=== PATIENT | female | born 1960 | race Asian ===

== ENCOUNTER 2023-11-19 07:33 | Inpatient (IN) | payer MEDICAID, OTHER ==
[~2023-11-19] VITALS: Ht 160 cm; Wt 63.2 kg
[2023-11-19] MEDS ORDERED: DEXTROSE (50%) 50ML SYRG IV PRN (07:45)
[2023-11-19 08:04] VITALS: PULSE 114; RESP 22; O2SAT 98
[2023-11-19 08:15] LABS: Anion Gap 25.00001 (5-15); Chloride 100 mmol/L (98-107); Sodium 135 mmol/L (136-145)
[2023-11-19 08:16] LABS: Calcium 9.6 mg/dL (8.7-10.4)
[2023-11-19 08:21] LABS: BUN/Creatinine Ratio 12.8 (10.0-20.0); Blood Urea Nitrogen 21 mg/dL (9-23); Magnesium 2.8 mg/dL (1.6-2.6)
[2023-11-19] MEDS: SODIUM CHLORIDE 0.9% 1,000 ML IV ONE ×2 (08:21→12:27)
[2023-11-19 08:23] LABS: Base Excess -34.2 mmol/L (-2.0-2.0); Phosphorus 6.7 mg/dL (2.4-5.1)
[2023-11-19 08:31] LABS: Carbon Dioxide < 10 mmol/L (20-30)
[2023-11-19 08:32] LABS: Glucose 646 mg/dL (74-106)
[2023-11-19 08:36] LABS: Basophils # (auto) 0.1 10 ^3/uL (0-0.2); Basophils % (auto) 0.3 % (0.0-2.0); Eosinophils # (auto) 0 10 ^3/uL (0-0.8); Eosinophils % (auto) 0.1 % (0.0-7.0); Hematocrit 49.1 % (36.0-46.0); Hemoglobin 15.3 g/dL (12.2-16.2); Lymphocytes # (auto) 3.6 10 ^3/uL (0.4-5.4); Lymphocytes % (auto) 18.6 % (10.0-50.0); Mean Corpuscular Hemoglobin 30.4 pg (28.0-32.0); Mean Corpuscular Hgb Conc. 31.1 g/dL (32.0-36.0); Mean Corpuscular Volume 97.8 fL (80.0-100.0); Monocytes # (auto) 2.4 10 ^3/uL (0-1.3); Monocytes % (auto) 12.4 % (0.0-12.0); Neutrophils # (auto) 13.3 10 ^3/uL (1.6-8.6); Neutrophils % (auto) 68.6 % (37.0-80.0); Nucleated Red Blood Cells % 0.1 %; Platelet Count (auto) 263 10^3/uL (140-450); Red Blood Cells 5.03 10^6/uL (4.0-5.20); Red Cell Distribution Width 15.3 % (11.8-14.3); White Blood Cell 19.3 10^3/uL (4.4-10.8)
[2023-11-19] MEDS: INSULIN LANTUS (GLARGINE) 1 /0.01ml (100units/ml) SC ONE (08:39)
[2023-11-19] MEDS: SODIUM BICARB 8.4% 50Meq/50ml SYR Vial IV ONE ×2 (08:39→18:37)
[2023-11-19] MEDS: INSULIN DRIP 100 UNIT/100ML 100 ML IV SCH ×2 (08:40→18:15)
[2023-11-19] MEDS: ACCU-CHEK COMFORT CURVE STRIP VI SCH (09:01)
[2023-11-19 09:53] LABS: Urine Bacteria None Seen /hpf (None Seen)
[2023-11-19 10:26] LABS: Urine Blood 1+ /uL (Negative); Urine Budding Yeast OCCASIONAL /hpf (None Seen); Urine Clarity Clear (Clear); Urine Color Light-Yellow (Yellow); Urine Protein, UAD 1+ (Negative); Urine Specific Gravity 1.025 (1.001-1.035); Urine Urobilinogen Normal (Negative); Urine WBC 1 /hpf (0 - 5); Urine pH 5.5 (5.0-9.0)
[2023-11-19] MEDS: SODIUM CHLORIDE 0.9% 1,000 ML IV SCH ×3 (10:43→13:45)
[2023-11-19 11:49] LABS: Triglycerides 362 mg/dL (< 150)
[2023-11-19 11:50] LABS: LDL Cholesterol 264 mg/dL (< 100)
[2023-11-19 11:51] LABS: Cholesterol 373 mg/dL (< 200); HDL Cholesterol 51 mg/dL (40-59)
[2023-11-19 11:57] LABS: Amphetamine Screen, Urine Neg (NEGATIVE); Barbiturate Scree,Urine Neg (NEGATIVE); Benzodiazephine Screen, Urine Neg (NEGATIVE); Cocaine Screen, Urine Neg (NEGATIVE); Opiate Scree,Urine Neg (NEGATIVE); Phencyclidine Screen, Urine Neg (NEGATIVE)
[2023-11-19 11:58] LABS: Cannabinoid Screen, Urine Neg (NEGATIVE)
[2023-11-19] MEDS: cefTRIAXone 1GM/50ML D5W 50 ML IV ONE (12:01)
[2023-11-19] MEDS: SODIUM BICARB 50mEq/50ml Vial 150 ML in D5W 5% 1,000 ML IV ONE ×2 (12:45→18:43)
[2023-11-19 14:43] LABS: Potassium 2.8 mmol/L (3.5-5.1); Sodium 143 mmol/L (136-145)
[2023-11-19 14:44] LABS: Anion Gap 21.00001 (5-15); Calcium 8.3 mg/dL (8.7-10.4)
[2023-11-19 14:49] LABS: BUN/Creatinine Ratio 13.8 (10.0-20.0); Blood Urea Nitrogen 18 mg/dL (9-23)
[2023-11-19 14:54] LABS: Chloride 112 mmol/L (98-107)
[2023-11-19 14:55] LABS: Carbon Dioxide < 10 mmol/L (20-30); Glucose 484 mg/dL (74-106)
[2023-11-19 18:25] LABS: Base Excess -19.9 mmol/L (-2.0-2.0)
[2023-11-19 19:45] LABS: Chloride 112 mmol/L (98-107); Potassium 2.8 mmol/L (3.5-5.1); Sodium 147 mmol/L (136-145)
[2023-11-19 19:46] LABS: Anion Gap 23 (5-15); Carbon Dioxide 12 mmol/L (20-30)
[2023-11-19 19:51] LABS: BUN/Creatinine Ratio 16.8 (10.0-20.0); Blood Urea Nitrogen 21 mg/dL (9-23); Glucose 381 mg/dL (74-106)
[2023-11-20] VITALS (10 sets, daily range): BP systolic 83–99; BP diastolic 52–60; PULSE 67–95; RESP 16–20; TEMP 97.6–98.6; O2SAT 96–100
[2023-11-20 00:09] LABS: Base Excess -3.9 mmol/L (-2.0-2.0)
[2023-11-20] MEDS: POTASSIUM CHL 20MEQ/100ML 100 ML IV SCH ×2 (00:42→10:06)
[2023-11-20 00:48] LABS: Chloride 115 mmol/L (98-107); Sodium 148 mmol/L (136-145)
[2023-11-20 00:49] LABS: Anion Gap 14 (5-15); Calcium 7.7 mg/dL (8.7-10.4); Carbon Dioxide 19 mmol/L (20-30)
[2023-11-20 00:54] LABS: Glucose 205 mg/dL (74-106)
[2023-11-20 01:05] LABS: Potassium 2.2 mmol/L (3.5-5.1)
[2023-11-20 01:29] LABS: BUN/Creatinine Ratio 19.6 (10.0-20.0); Blood Urea Nitrogen 27 mg/dL (9-23)
[2023-11-20] MEDS ORDERED: DEXTROSE (50%) 50ML SYRG IV PRN ×2 (03:30→11:30)
[2023-11-20] MEDS: POTASSIUM CHL 20 Meq TABLET PO ONE (04:05)
[2023-11-20] MEDS: ACCU-CHEK COMFORT CURVE STRIP VI SCH ×2 (04:09→11:30)
[2023-11-20] MEDS: InsuLIN REG 1unit/0.01ml Soln (100units/ml) SC SCH ×3 (04:11→21:34)
[2023-11-20] MEDS ORDERED: METF-370 PO (05:57)
[2023-11-20 07:53] LABS: Basophils # (auto) 0 10 ^3/uL (0-0.2); Basophils % (auto) 0.2 % (0.0-2.0); Eosinophils # (auto) 0 10 ^3/uL (0-0.8); Eosinophils % (auto) 0.1 % (0.0-7.0); Hemoglobin 11.8 g/dL (12.2-16.2); Lymphocytes # (auto) 0.6 10 ^3/uL (0.4-5.4); Lymphocytes % (auto) 7.1 % (10.0-50.0); Mean Corpuscular Hemoglobin 30.8 pg (28.0-32.0); Mean Corpuscular Hgb Conc. 34.9 g/dL (32.0-36.0); Mean Corpuscular Volume 88.2 fL (80.0-100.0); Monocytes % (auto) 11.1 % (0.0-12.0); Neutrophils # (auto) 7.1 10 ^3/uL (1.6-8.6); Neutrophils % (auto) 81.5 % (37.0-80.0); Nucleated Red Blood Cells % 0.3 %; Platelet Count (auto) 152 10^3/uL (140-450); Red Blood Cells 3.85 10^6/uL (4.0-5.20); Red Cell Distribution Width 13.9 % (11.8-14.3); White Blood Cell 8.8 10^3/uL (4.4-10.8)
[2023-11-20 07:57] LABS: Alanine Aminotransferase 15 U/L (7-40); Alkaline Phosphatase 54 U/L (46-116); Anion Gap 12 (5-15); Aspartate Aminotransferase 38 U/L (13-40); BUN/Creatinine Ratio 14.9 (10.0-20.0); Bilirubin, Total 0.6 mg/dL (0.2-1.0); Blood Urea Nitrogen 26 mg/dL (9-23); Calcium 8.2 mg/dL (8.7-10.4); Carbon Dioxide 22 mmol/L (20-30); Chloride 114 mmol/L (98-107); Glucose 183 mg/dL (74-106); Sodium 148 mmol/L (136-145); Total Protein 4.8 g/dL (5.7-8.2)
[2023-11-20] MEDS: cefTRIAXone 1GM/50ML D5W 50 ML IV SCH (08:00)
[2023-11-20 08:05] LABS: Potassium 2.5 mmol/L (3.5-5.1)
[2023-11-20] MEDS: INSULIN LANTUS (GLARGINE) 1 /0.01ml (100units/ml) SC SCH (09:55)
[2023-11-20] MEDS: SOD CHL 0.9%/ KCL 40MEQ 1,000 ML IV SCH ×2 (10:06→13:14)
[2023-11-20] MEDS: ENOXAPARIN SOD 30 MG/0.3 ML SYRINGE SC SCH (10:17)
[2023-11-20 12:32] LABS: Anion Gap 10 (5-15); Carbon Dioxide 24 mmol/L (20-30); Chloride 115 mmol/L (98-107); Potassium 2.9 mmol/L (3.5-5.1); Sodium 149 mmol/L (136-145)
[2023-11-20 12:33] LABS: Calcium 8.4 mg/dL (8.7-10.4)
[2023-11-20 12:38] LABS: BUN/Creatinine Ratio 17.2 (10.0-20.0); Blood Urea Nitrogen 34 mg/dL (9-23); Glucose 175 mg/dL (74-106)
[2023-11-20] MEDS: SODIUM CHLORIDE 0.9% 500 ML IV ONE (17:25)
[2023-11-20 18:51] LABS: Chloride 116 mmol/L (98-107); Potassium 3.3 mmol/L (3.5-5.1); Sodium 147 mmol/L (136-145)
[2023-11-20 18:52] LABS: Anion Gap 8 (5-15); Carbon Dioxide 23 mmol/L (20-30)
[2023-11-20 18:53] LABS: Calcium 7.9 mg/dL (8.7-10.4)
[2023-11-20 18:57] LABS: BUN/Creatinine Ratio 13.6 (10.0-20.0); Blood Urea Nitrogen 30 mg/dL (9-23); Glucose 169 mg/dL (74-106)
[2023-11-21] VITALS (8 sets, daily range): BP systolic 101–117; BP diastolic 66–85; PULSE 77–89; RESP 16–20; TEMP 97.5–98.5; O2SAT 98–100
[2023-11-21] MEDS ORDERED: ACETAMINOPHEN 325 MG TAB PO PRN (07:00)
[2023-11-21 07:05] LABS: Basophils # (auto) 0 10 ^3/uL (0-0.2); Basophils % (auto) 0.2 % (0.0-2.0); Eosinophils # (auto) 0 10 ^3/uL (0-0.8); Hematocrit 34.5 % (36.0-46.0); Hemoglobin 12.2 g/dL (12.2-16.2); Lymphocytes # (auto) 1.3 10 ^3/uL (0.4-5.4); Mean Corpuscular Hemoglobin 30.9 pg (28.0-32.0); Mean Corpuscular Hgb Conc. 35.4 g/dL (32.0-36.0); Mean Corpuscular Volume 87.2 fL (80.0-100.0); Monocytes # (auto) 0.7 10 ^3/uL (0-1.3); Monocytes % (auto) 7.9 % (0.0-12.0); Neutrophils # (auto) 6.7 10 ^3/uL (1.6-8.6); Neutrophils % (auto) 76.9 % (37.0-80.0); Nucleated Red Blood Cells % 0.1 %; Platelet Count (auto) 126 10^3/uL (140-450); Red Blood Cells 3.96 10^6/uL (4.0-5.20); Red Cell Distribution Width 14.6 % (11.8-14.3); White Blood Cell 8.7 10^3/uL (4.4-10.8)
[2023-11-21 07:19] LABS: Chloride 119 mmol/L (98-107); Potassium 4.3 mmol/L (3.5-5.1); Sodium 149 mmol/L (136-145)
[2023-11-21 07:20] LABS: Anion Gap 10 (5-15); Carbon Dioxide 20 mmol/L (20-30)
[2023-11-21 07:21] LABS: Calcium 8.1 mg/dL (8.7-10.4)
[2023-11-21 07:25] LABS: BUN/Creatinine Ratio 12.2 (10.0-20.0); Blood Urea Nitrogen 31 mg/dL (9-23); Glucose 128 mg/dL (74-106)
[2023-11-21] MEDS: SODIUM CHLORIDE 0.9% 1,000 ML IV SCH (10:34)
[2023-11-21] MEDS: ONDANSETRON HCL 4 MG/2 ML VIAL IV PRN (10:37)
[2023-11-21] MEDS: SODIUM CHLORIDE 0.9% 1,000 ML IV ONE (11:04)
[2023-11-21 12:16] LABS: Magnesium 1.7 mg/dL (1.6-2.6)
[2023-11-21 12:18] LABS: Phosphorus 1.1 mg/dL (2.4-5.1)
[2023-11-21] MEDS: PANTOPRAZOLE 40 MG/10 ML VIAL INJ IV ONE (13:09)
[2023-11-21] MEDS: SOD CHL 0.45% 1,000 ML IV SCH (18:00)
[2023-11-21] MEDS: POTASSIUM PHOSPHATE 22 MEQ in SODIUM CHL 0.9% 100 ML IV ONE (18:06)
[2023-11-21] MEDS: ERGOCALCIFEROL 50,000 UNIT(1.25MG) CAP PO SCH (18:08)
[2023-11-22] VITALS (8 sets, daily range): BP systolic 97–109; BP diastolic 60–79; PULSE 69–88; RESP 16–18; TEMP 97.5–99.5; O2SAT 95–99
[2023-11-22 07:06] LABS: Anion Gap 9 (5-15); Carbon Dioxide 19 mmol/L (20-30); Chloride 117 mmol/L (98-107); Potassium 3.8 mmol/L (3.5-5.1); Sodium 145 mmol/L (136-145)
[2023-11-22 07:07] LABS: Calcium 8.1 mg/dL (8.7-10.4)
[2023-11-22 07:12] LABS: BUN/Creatinine Ratio 14.1 (10.0-20.0); Blood Urea Nitrogen 40 mg/dL (9-23); Glucose 102 mg/dL (74-106)
[2023-11-22] MEDS: PANTOPRAZOLE 40 MG/10 ML VIAL INJ IV SCH ×2 (10:41→21:51)
[2023-11-22] MEDS: SOD CHL 0.45% 1,000 ML IV SCH ×2 (10:47→18:21)
[2023-11-22 20:05] LABS: Urine Bacteria None Seen /hpf (None Seen)
[2023-11-22 20:28] LABS: Urine Blood 1+ /uL (Negative); Urine Budding Yeast LOADED /hpf (None Seen); Urine Clarity Turbid (Clear); Urine Color Light-Violet (Yellow); Urine Mucus FEW (None Seen); Urine Protein, UAD TRACE (Negative); Urine Urobilinogen Normal (Negative); Urine WBC 38 /hpf (0 - 5)
[2023-11-22 20:37] LABS: Protein, Urine 25.7 mg/dL (0.0-11.9)
[2023-11-22 20:40] LABS: Creatinine, Urine 59.72 mg/dL (30.0-125.0)
[2023-11-23] VITALS (7 sets, daily range): BP systolic 105–111; BP diastolic 1–71; PULSE 63–82; RESP 14–19; TEMP 98.1–98.7; O2SAT 96–98
[2023-11-23 06:15] LABS: Basophils # (auto) 0 10 ^3/uL (0-0.2); Basophils % (auto) 0.3 % (0.0-2.0); Eosinophils # (auto) 0 10 ^3/uL (0-0.8); Eosinophils % (auto) 0.2 % (0.0-7.0); Hematocrit 36.7 % (36.0-46.0); Hemoglobin 12.6 g/dL (12.2-16.2); Lymphocytes # (auto) 1.4 10 ^3/uL (0.4-5.4); Lymphocytes % (auto) 18.8 % (10.0-50.0); Mean Corpuscular Hemoglobin 29.9 pg (28.0-32.0); Mean Corpuscular Hgb Conc. 34.2 g/dL (32.0-36.0); Mean Corpuscular Volume 87.5 fL (80.0-100.0); Monocytes # (auto) 0.5 10 ^3/uL (0-1.3); Neutrophils # (auto) 5.3 10 ^3/uL (1.6-8.6); Neutrophils % (auto) 73.7 % (37.0-80.0); Nucleated Red Blood Cells % 0.1 %; Platelet Count (auto) 104 10^3/uL (140-450); Red Cell Distribution Width 14.7 % (11.8-14.3); White Blood Cell 7.2 10^3/uL (4.4-10.8)
[2023-11-23 06:31] LABS: Chloride 111 mmol/L (98-107); Potassium 3.5 mmol/L (3.5-5.1); Sodium 138 mmol/L (136-145)
[2023-11-23 06:32] LABS: Anion Gap 10 (5-15); Carbon Dioxide 17 mmol/L (20-30)
[2023-11-23 06:37] LABS: BUN/Creatinine Ratio 10.5 (10.0-20.0); Glucose 94 mg/dL (74-106)
[2023-11-23 06:49] LABS: Blood Urea Nitrogen 30 mg/dL (9-23)
[2023-11-23] MEDS: SODIUM CHLORIDE 0.9% 1,000 ML IV SCH (11:13)
[2023-11-23] MEDS: ONDANSETRON HCL 4 MG/2 ML VIAL IV PRN (18:24)
[2023-11-23] MEDS: ATORVASTATIN 20 MG TAB PO SCH (21:30)
[2023-11-24] VITALS (8 sets, daily range): BP systolic 105–124; BP diastolic 62–87; PULSE 66–82; RESP 18–20; TEMP 97.6–98.7; O2SAT 95–98
[2023-11-24] MEDS: cefTRIAXone 1GM/50ML D5W 50 ML IV ONE (03:25)
[2023-11-24 06:38] LABS: Chloride 114 mmol/L (98-107); Potassium 3.7 mmol/L (3.5-5.1); Sodium 141 mmol/L (136-145)
[2023-11-24 06:39] LABS: Anion Gap 9 (5-15); Carbon Dioxide 18 mmol/L (20-30)
[2023-11-24 06:44] LABS: BUN/Creatinine Ratio 7.4 (10.0-20.0); Blood Urea Nitrogen 22 mg/dL (9-23); Glucose 71 mg/dL (74-106)
[2023-11-24] MEDS: FLUCONAZOLE 100 MG TAB PO ONE (12:09)
[2023-11-24] MEDS: SODIUM BICARBONATE 650 MG TAB PO SCH (21:34)
[2023-11-25] VITALS (9 sets, daily range): BP systolic 103–126; BP diastolic 52–72; PULSE 62–86; RESP 15–20; TEMP 97.3–98.1; O2SAT 94–100
[2023-11-25] MEDS ORDERED: cefTRIAXone 1GM/50ML D5W 50 ML IV SCH (02:00)
[2023-11-25 06:20] LABS: Anion Gap 9 (5-15); Carbon Dioxide 18 mmol/L (20-30); Chloride 116 mmol/L (98-107); Sodium 143 mmol/L (136-145)
[2023-11-25 06:21] LABS: Calcium 7.9 mg/dL (8.7-10.4)
[2023-11-25 06:26] LABS: Blood Urea Nitrogen 19 mg/dL (9-23); Glucose 53 mg/dL (74-106)
[2023-11-25] MEDS: POTASSIUM EFFERVESENT TAB 25 MEQ PO ONE ×2 (08:00→09:15)
[2023-11-25] MEDS: FLUCONAZOLE 100 MG TAB PO SCH (10:07)
[2023-11-25] MEDS: PANTOPRAZOLE 40 MG TAB PO ONE (10:30)
[2023-11-25] MEDS: MAGNESIUM SULFATE 1GM/100ML 100 ML IV ONE (20:52)
[2023-11-26] VITALS (7 sets, daily range): BP systolic 107–121; BP diastolic 57–69; PULSE 63–85; RESP 16–19; TEMP 97.1–98.6; O2SAT 94–99
[2023-11-26 04:34] LABS: Chloride 116 mmol/L (98-107); Potassium 4.4 mmol/L (3.5-5.1); Sodium 145 mmol/L (136-145)
[2023-11-26 04:35] LABS: Anion Gap 7 (5-15); Carbon Dioxide 22 mmol/L (20-30)
[2023-11-26 04:40] LABS: BUN/Creatinine Ratio 8.6 (10.0-20.0); Blood Urea Nitrogen 19 mg/dL (9-23); Glucose 89 mg/dL (74-106)
[2023-11-26 04:41] LABS: Magnesium 1.7 mg/dL (1.6-2.6)
[2023-11-26 04:42] LABS: Phosphorus 4.2 mg/dL (2.4-5.1)
[2023-11-26] MEDS: PANTOPRAZOLE 40 MG TAB PO SCH (06:24)
[2023-11-27 01:00] VITALS: BP 118/70; PULSE 73; RESP 18; TEMP 99; O2SAT 95
[2023-11-27 05:00] VITALS: BP 110/70; PULSE 72; RESP 16; TEMP 98.5; O2SAT 94
[2023-11-27 07:07] LABS: Basophils # (auto) 0 10 ^3/uL (0-0.2); Basophils % (auto) 0.2 % (0.0-2.0); Eosinophils # (auto) 0.1 10 ^3/uL (0-0.8); Eosinophils % (auto) 2.3 % (0.0-7.0); Hematocrit 33.8 % (36.0-46.0); Hemoglobin 11.6 g/dL (12.2-16.2); Lymphocytes # (auto) 1.7 10 ^3/uL (0.4-5.4); Lymphocytes % (auto) 33.3 % (10.0-50.0); Mean Corpuscular Hemoglobin 30.5 pg (28.0-32.0); Mean Corpuscular Hgb Conc. 34.4 g/dL (32.0-36.0); Mean Corpuscular Volume 88.6 fL (80.0-100.0); Monocytes # (auto) 0.7 10 ^3/uL (0-1.3); Neutrophils # (auto) 2.6 10 ^3/uL (1.6-8.6); Neutrophils % (auto) 50.2 % (37.0-80.0); Platelet Count (auto) 201 10^3/uL (140-450); Red Blood Cells 3.82 10^6/uL (4.0-5.20); White Blood Cell 5.1 10^3/uL (4.4-10.8)
[2023-11-27 07:19] LABS: Calcium 8.7 mg/dL (8.7-10.4); Chloride 112 mmol/L (98-107); Potassium 4.1 mmol/L (3.5-5.1); Sodium 146 mmol/L (136-145)
[2023-11-27 07:20] LABS: Anion Gap 5 (5-15); Carbon Dioxide 29 mmol/L (20-30)
[2023-11-27 07:25] LABS: BUN/Creatinine Ratio 10.6 (10.0-20.0); Blood Urea Nitrogen 18 mg/dL (9-23); Glucose 111 mg/dL (74-106)
[2023-11-27 07:26] LABS: Magnesium 1.5 mg/dL (1.6-2.6)
[2023-11-27 08:00] VITALS: PULSE 98; RESP 18; O2SAT 96
[2023-11-27 09:00] VITALS: BP 112/70; PULSE 78; RESP 17; TEMP 97.8; O2SAT 98
[2023-11-27] MEDS ORDERED: ATOR20TA50 PO (11:04)
[2023-11-27] MEDS ORDERED: LISI-275 PO (11:04)
[2023-11-27] MEDS ORDERED: BLOO1KIT60 XX (11:04)
[2023-11-27] MEDS ORDERED: INSLANTI SC (11:04)
[2023-11-27 12:41] VITALS: BP 112/68; PULSE 58; RESP 16; TEMP 98.1; O2SAT 98
[2023-11-27 14:32] VITALS: BP 112/65; PULSE 59; RESP 18; TEMP 36.7; O2SAT 98
== END 2023-11-27 15:58 | disposition home or self-care (01) | DRG 420 ==
LOC: ER 07:33 → EDBD 07:33 → OVERFLOW 11:13 → TELE-WESTW 11-20 05:40 → WEST WING 11-26 01:29
PROVIDERS: ADMIT Internal Medicine Geriatric Medicine; ATTEND Internal Medicine Geriatric Medicine
DX: E11.10 Type 2 diabetes mellitus with ketoacidosis without coma (principal); N17.0 Acute kidney failure with tubular necrosis; G93.41 Metabolic encephalopathy; B37.49 Other urogenital candidiasis; T83.83XA Hemorrhage due to genitourinary prosthetic devices, implants and grafts, initial encounter; E86.0 Dehydration; D72.829 Elevated white blood cell count, unspecified; E87.6 Hypokalemia; N18.32 Chronic kidney disease, stage 3b; E11.22 Type 2 diabetes mellitus with diabetic chronic kidney disease; E86.1 Hypovolemia; Z79.4 Long term (current) use of insulin; Z79.899 Other long term (current) drug therapy; Y84.6 Urinary catheterization as the cause of abnormal reaction of the patient, or of later complication, without mention of misadventure at the time of the procedure
CPT/HCPCS: 36415; 36600; 70450; 71045; 74176; 76604; 76775; 80048; 80053; 80061; 80307; 81001; 82010; 82040; 82043; 82270; 82306; 82570; 82607; 82805; 82962; 83036; 83735; 83880; 83930; 83935; 84100; 84133; 84156; 84300; 84443; 85025; 85049; 87040; 87086; 93005; 93306; 96361; 96365; 96372; 96375; 99291; G0378; J1815; J2405; J2470; J3480

== ENCOUNTER 2023-12-23 09:08 | Emergency (ER) | payer MEDICAID ==
[~2023-12-23] VITALS: Ht 160 cm; Wt 45.5 kg
[~2023-12-23 09:08] MED LIST: ATOR20TA50 PO; BLOO1KIT60 XX; INSLANTI SC; LISI-275 PO
[2023-12-23 10:05] LABS: Basophils # (auto) 0 10 ^3/uL (0-0.2); Basophils % (auto) 0.8 % (0.0-2.0); Eosinophils # (auto) 0 10 ^3/uL (0-0.8); Eosinophils % (auto) 0.5 % (0.0-7.0); Hematocrit 38.5 % (36.0-46.0); Hemoglobin 13.4 g/dL (12.2-16.2); Lymphocytes # (auto) 1.8 10 ^3/uL (0.4-5.4); Lymphocytes % (auto) 35.4 % (10.0-50.0); Mean Corpuscular Hemoglobin 30.2 pg (28.0-32.0); Mean Corpuscular Hgb Conc. 34.8 g/dL (32.0-36.0); Mean Corpuscular Volume 86.6 fL (80.0-100.0); Monocytes # (auto) 0.6 10 ^3/uL (0-1.3); Monocytes % (auto) 11.1 % (0.0-12.0); Neutrophils # (auto) 2.7 10 ^3/uL (1.6-8.6); Neutrophils % (auto) 52.2 % (37.0-80.0); Nucleated Red Blood Cells % 0.1 %; Platelet Count (auto) 275 10^3/uL (140-450); Red Blood Cells 4.45 10^6/uL (4.0-5.20); Red Cell Distribution Width 14.2 % (11.8-14.3); White Blood Cell 5.1 10^3/uL (4.4-10.8)
[2023-12-23 10:13] LABS: Urine Bacteria None Seen /hpf (None Seen); Urine Blood Negative /uL (Negative); Urine Clarity Clear (Clear); Urine Color Yellow (Yellow); Urine Hyaline Cast MANY /lpf (0 - 2); Urine Mucus FEW (None Seen); Urine Protein, UAD TRACE (Negative); Urine Specific Gravity 1.015 (1.001-1.035); Urine Urobilinogen Normal (Negative); Urine WBC 3 /hpf (0 - 5); Urine pH 5.5 (5.0-9.0)
[2023-12-23] MEDS: SODIUM CHLORIDE 0.9% 1,000 ML IVB ONE (10:14)
[2023-12-23 10:28] VITALS: TEMP 97.5
[2023-12-23 10:28] LABS: Alanine Aminotransferase 18 U/L (7-40); Albumin 4.3 g/dL (3.2-4.8); Alkaline Phosphatase 74 U/L (46-116); Anion Gap 7 (5-15); Aspartate Aminotransferase 18 U/L (13-40); BUN/Creatinine Ratio 7.5 (10.0-20.0); Blood Urea Nitrogen 6 mg/dL (9-23); Calcium 9.6 mg/dL (8.7-10.4); Carbon Dioxide 27 mmol/L (20-30); Chloride 98 mmol/L (98-107); Glucose 227 mg/dL (74-106); Magnesium 1.8 mg/dL (1.6-2.6); Potassium 3.7 mmol/L (3.5-5.1); Sodium 132 mmol/L (136-145)
[2023-12-23 10:29] LABS: Bilirubin, Total 1.7 mg/dL (0.2-1.0); Total Protein 7.2 g/dL (5.7-8.2)
[2023-12-23 11:06] LABS: Lipase 46 U/L (12-53)
[2023-12-23] MEDS: IOHEXOL 300 MG/ML 100ML BOTTLE IJ ONE (11:40)
[2023-12-23] MEDS ORDERED: SENN1CAP4 PO (15:42)
[2023-12-23] MEDS ORDERED: CYCL-839 PO (15:47)
[2023-12-23] MEDS ORDERED: DICL50TA2 PO (15:47)
[2023-12-23 16:00] VITALS: BP 126/82; PULSE 74; RESP 14; O2SAT 100
== END 2023-12-23 16:02 | disposition home or self-care (01) ==
LOC: ER 09:08
DX: K52.9 Noninfective gastroenteritis and colitis, unspecified (principal); K59.09 Other constipation; M47.816 Spondylosis without myelopathy or radiculopathy, lumbar region; E11.65 Type 2 diabetes mellitus with hyperglycemia; R10.11 Right upper quadrant pain; E11.9 Type 2 diabetes mellitus without complications; Z79.899 Other long term (current) drug therapy
CPT/HCPCS: 36415; 71045; 74177; 80053; 81001; 82962; 83690; 83735; 84484; 85025; 93005; 96360; 99285; J7030; Q9967

== ENCOUNTER → 2024-01-01 | Outpatient (CLI) | payer MEDICAID ==
[~2024-01-01] MED LIST changes: +CYCL-839 PO; +DICL50TA2 PO; +SENN1CAP4 PO
[2024-01-01 12:18] LABS: Basophils # (auto) 0 10 ^3/uL (0-0.2); Basophils % (auto) 0.7 % (0.0-2.0); Eosinophils # (auto) 0.1 10 ^3/uL (0-0.8); Eosinophils % (auto) 1.1 % (0.0-7.0); Hematocrit 39.9 % (36.0-46.0); Hemoglobin 13.9 g/dL (12.2-16.2); Lymphocytes # (auto) 2.3 10 ^3/uL (0.4-5.4); Lymphocytes % (auto) 43.1 % (10.0-50.0); Mean Corpuscular Hemoglobin 30.2 pg (28.0-32.0); Mean Corpuscular Hgb Conc. 34.8 g/dL (32.0-36.0); Mean Corpuscular Volume 86.8 fL (80.0-100.0); Monocytes # (auto) 0.4 10 ^3/uL (0-1.3); Monocytes % (auto) 8.4 % (0.0-12.0); Neutrophils # (auto) 2.5 10 ^3/uL (1.6-8.6); Neutrophils % (auto) 46.7 % (37.0-80.0); Nucleated Red Blood Cells % 0.2 %; Platelet Count (auto) 242 10^3/uL (140-450); Red Cell Distribution Width 14.1 % (11.8-14.3); White Blood Cell 5.3 10^3/uL (4.4-10.8)
[2024-01-01 12:29] LABS: Alanine Aminotransferase 12 U/L (7-40); Albumin 4.4 g/dL (3.2-4.8); Alkaline Phosphatase 64 U/L (46-116); Anion Gap 5 (5-15); Aspartate Aminotransferase 23 U/L (13-40); BUN/Creatinine Ratio 10.1 (10.0-20.0); Bilirubin, Total 1.7 mg/dL (0.2-1.0); Blood Urea Nitrogen 9 mg/dL (9-23); Calcium 10.1 mg/dL (8.7-10.4); Carbon Dioxide 28 mmol/L (20-30); Chloride 102 mmol/L (98-107); Glucose 233 mg/dL (74-106); Potassium 3.9 mmol/L (3.5-5.1); Sodium 135 mmol/L (136-145); Total Protein 7.3 g/dL (5.7-8.2)
== END | disposition home or self-care (01) ==
LOC: LAB 11:43
PROVIDERS: ATTEND Internal Medicine
DX: E11.22 Type 2 diabetes mellitus with diabetic chronic kidney disease (principal); N18.9 Chronic kidney disease, unspecified; E11.65 Type 2 diabetes mellitus with hyperglycemia; E11.42 Type 2 diabetes mellitus with diabetic polyneuropathy; E11.10 Type 2 diabetes mellitus with ketoacidosis without coma
CPT/HCPCS: 36415; 80053; 85025

== ENCOUNTER → 2024-02-28 | Outpatient (CLI) | payer MEDICAID ==
[~2024-02-28] VITALS: Ht 160 cm; Wt 40.8 kg
[2024-02-28] MEDS: ADENOSINE 34 MG in GIVE UN-DILUTED 0 ML IV ONE (12:11)
--- NOTE | 2024-02-28 14:01 | DVHSR ---
APPROVED REPORT Exam: Nuclear Stress Test BMI: 0 Stress Test Details HR Max Heart Rate (APMHR): 157.833645 bpm Target HR (85% APMHR): 133.003147 bpm BP ECG Stress ECG Conclusion Resting images shows near homogeneous uptake of radioactive tracer throughout the myocardium without evidence of myocardial infarction. Resting images shows near homogeneous uptake of radioactive tracer throughout the myocardium without evidence of myocardial ischemia. Well-preserved left ventricular systolic function at 73%. Impression and plan: Negative stress for ischemia: Low risk study. NM EXAM: Myocardial Perfusion REST/STRESS Imaging Protocol: Rest Tc-99m/Stress Tc-99m 1 day Resting Data Rest SPECT myocardial perfusion imaging was performed in supine position 60 minutes following the int ravenous injection of 8.2 mCi of Tc-99m Sestamibi. Time of rest injection: 1100 Time of rest imagin Administration Route: IV Administration Site: Left Arm Pharmacologic Stress Pharmacologic stress test was performed by injecting Adenosine mg IV push followed by the intravenou s injection of 29.8 mCi of Tc-99m Sestamibi. Time of stress injection: 1220 Time of stress imagin Administration Route: IV Gated Stress SPECT was performed 60 minutes after stress injection. The images were gated to evaluate regional wall motion and calculate left ventricular ejection fracti on. Stress only was performed in the Supine position. Nuclear Conclusion ECG Findings: negative for ischemia Clinical Findings: negative for ischemia Nuclear Findings: negative for ischemia Exercise Capacity: not assessed Left Ventricular Function: normal Risk Study: low Resting images shows near homogeneous uptake of radioactive tracer throughout the myocardium without evidence of myocardial infarction. Resting images shows near homogeneous uptake of radioactive tracer throughout the myocardium without evidence of myocardial ischemia. Well-preserved left ventricular systolic function at 73%. Impression and plan: Negative stress for ischemia: Low risk study.
== END | disposition home or self-care (01) ==
LOC: XYW 10:59
PROVIDERS: ATTEND Student in an Organized Health Care Education/Training Program
DX: R06.02 Shortness of breath (principal); E11.65 Type 2 diabetes mellitus with hyperglycemia; R03.0 Elevated blood-pressure reading, without diagnosis of hypertension; Z79.4 Long term (current) use of insulin
CPT/HCPCS: 78452; 93017; A9500; J0153

== ENCOUNTER 2024-03-11 09:05 | Day surgery (SDC) | payer MEDICAID ==
[2024-03-05 10:20] LABS: INR 1.08 (0.9-1.15); Partial Thromboplastin Time 27.9 SEC (24.5-34.5); Prothrombin Time 11.4 sec (9.3-11.8)
[2024-03-05 10:23] LABS: Basophils # (auto) 0 10 ^3/uL (0-0.2); Basophils % (auto) 0.7 % (0.0-2.0); Eosinophils # (auto) 0 10 ^3/uL (0-0.8); Eosinophils % (auto) 0.2 % (0.0-7.0); Hematocrit 41.9 % (36.0-46.0); Hemoglobin 14.7 g/dL (12.2-16.2); Lymphocytes # (auto) 2.4 10 ^3/uL (0.4-5.4); Lymphocytes % (auto) 50.6 % (10.0-50.0); Mean Corpuscular Hemoglobin 29.9 pg (28.0-32.0); Mean Corpuscular Hgb Conc. 35.2 g/dL (32.0-36.0); Mean Corpuscular Volume 84.9 fL (80.0-100.0); Monocytes # (auto) 0.3 10 ^3/uL (0-1.3); Monocytes % (auto) 6.2 % (0.0-12.0); Neutrophils % (auto) 42.3 % (37.0-80.0); Nucleated Red Blood Cells % 0.2 %; Platelet Count (auto) 254 10^3/uL (140-450); Red Blood Cells 4.93 10^6/uL (4.0-5.20); Red Cell Distribution Width 13.7 % (11.8-14.3); White Blood Cell 4.7 10^3/uL (4.4-10.8)
[2024-03-05 10:30] LABS: Alanine Aminotransferase 17 U/L (7-40); Alkaline Phosphatase 38 U/L (46-116); Anion Gap 8 (5-15); Aspartate Aminotransferase 24 U/L (13-40); BUN/Creatinine Ratio 12.7 (10.0-20.0); Bilirubin, Total 1.5 mg/dL (0.2-1.0); Blood Urea Nitrogen 9 mg/dL (9-23); Calcium 10.2 mg/dL (8.7-10.4); Carbon Dioxide 27 mmol/L (20-31); Chloride 99 mmol/L (98-107); Glucose 171 mg/dL (74-106); Potassium 3.6 mmol/L (3.5-5.1); Sodium 134 mmol/L (136-145); Total Protein 6.6 g/dL (5.7-8.2)
[~2024-03-11] VITALS: Ht 160 cm; Wt 39.0 kg
[~2024-03-11 09:05] MED LIST changes: -ATOR20TA50 PO; -CYCL-839 PO; -DICL50TA2 PO; +GABA-1308 PO; -LISI-275 PO; -SENN1CAP4 PO
[2024-03-11] MEDS ORDERED: diphenhdrAMINE HCL 50 MG/1 ML VL ONE (09:38)
[2024-03-11] MEDS ORDERED: MIDAZOLAM HCL 2MG/2ML 2ml VIAL (1mg/ml) ONE (09:38)
[2024-03-11] MEDS ORDERED: SODIUM CHLORIDE LOCK 10 ML ONE (09:38)
[2024-03-11 12:16] VITALS: PULSE 94; RESP 22; O2SAT 99
[2024-03-11] MEDS: MIDAZOLAM HCL 5 MG/ML-1ML VIAL ONE (12:19)
[2024-03-11] MEDS: fentaNYL CITRATE 100 MCG/2 ML VL ONE (12:19)
--- NOTE | 2024-03-11 12:34 | DVHNC2 ---
Procedure - REFERRING PROVIDER: Dr. NY ROMERO MD PROCEDURE PERFORMED: 1. Esophagogastroduodenoscopy with biopsy with moderate sedation PRE-PROCEDURE DIAGNOSIS: 1. WT LOSS 2. NAUSEA 3. ABDOMINAL PAIN POSTPROCEDURE DIAGNOSIS: 1. Mild erosive esophagitis, LA grade A 2. Mild gastritis MEDICATIONS USED: 4 mg IV Versed, 50 mcg of Fentanyl IV DETAILS OF THE PROCEDURE: Informed consent was obtained after risks benefits and alternatives were discussed at length with patient patient gave consent to the procedure as well as medication used for sedation. The patient was placed in left lateral decubitus position. An Olympus variable endoscope was inserted into the oropharynx advanced into the esophagus, then into the stomach, then into the duodenal bulb and duodenum. The scope was then withdrawn. The mucosa was carefully evaluated. The duodenum was normal to the 3rd portion. The stomach showed gastritis, biopsies were taken the body and antrum and sent for H pylori as well as pathology. Retroflexion showed no abnormalities. The scope was withdrawn. The esophagus showed mild erosive esophagitis with the Z-line at 38 cm. The scope was then withdrawn and the procedure completed. The patient tolerated the procedure well. IMPRESSION: 1. Mild erosive esophagitis and mild gastritis. No ulcers, tumors, strictures, or hernia seen. No explanation for the cause of the patient's weight loss seen on today's endoscopy. RECOMMENDATIONS: 1. Follow up in GI Clinic for procedure and pathology results 2. Anti-reflux precautions 3. Patient should be on a proton pump inhibitor 30 minutes before breakfast daily 4. Consider further workup for the patient's symptoms that they persist or worsen 5. Follow up with imaging and/or other tests that have been ordered 6. Avoid caffeine, spicy food, alcohol, chocolate, tomatoes, citrus, late night eating. I WOULD LIKE TO THANK DR. JONES FOR THIS REFERRAL RUI EVANS MD Mar 11, 2024 12:34
[2024-03-11 12:35] VITALS: PULSE 89; RESP 12; TEMP 98.2; O2SAT 100
[2024-03-11 13:45] VITALS: BP 128/86; PULSE 78; RESP 14; O2SAT 100
--- NOTE | 2024-03-11 15:02 | DVHINCON2 ---
Date of Service if different f: Mar 11, 2024 Time of Service: 14:36 Consultation ([facility]) Consulting Physician: GEOVANNY IBANEZ MD Labs Laboratory Tests Test 03/05/24 09:57 03/11/24 10:43 White Blood Count 4.7 10^3/uL (4.4-10.8) Red Blood Count 4.93 10^6/uL (4.0-5.20) Hemoglobin 14.7 g/dL (12.2-16.2) Hematocrit 41.9 % (36.0-46.0) Mean Corpuscular Volume 84.9 fL (80.0-100.0) Mean Corpuscular Hemoglobin 29.9 pg (28.0-32.0) Mean Corpuscular Hemoglobin Concent 35.2 g/dL (32.0-36.0) Red Cell Distribution Width 13.7 % (11.8-14.3) Platelet Count 254 10^3/uL (140-450) Mean Platelet Volume 7.5 fL (6.9-10.8) Neutrophils (%) (Auto) 42.3 % (37.0-80.0) Lymphocytes (%) (Auto) 50.6 % (10.0-50.0) Monocytes (%) (Auto) 6.2 % (0.0-12.0) Eosinophils (%) (Auto) 0.2 % (0.0-7.0) Basophils (%) (Auto) 0.7 % (0.0-2.0) Neutrophils # (Auto) 2.0 10 ^3/uL (1.6-8.6) Lymphocytes # (Auto) 2.4 10 ^3/uL (0.4-5.4) Monocytes # (Auto) 0.3 10 ^3/uL (0-1.3) Eosinophils # (Auto) 0 10 ^3/uL (0-0.8) Basophils # (Auto) 0 10 ^3/uL (0-0.2) Nucleated Red Blood Cells 0.2 % Prothrombin Time 11.4 sec (9.3-11.8) Prothromb Time International Ratio 1.08 (0.9-1.15) Activated Partial Thromboplast Time 27.9 SEC (24.5-34.5) Sodium Level 134 mmol/L (136-145) Potassium Level 3.6 mmol/L (3.5-5.1) Chloride Level 99 mmol/L (98-107) Carbon Dioxide Level 27 mmol/L (20-31) Anion Gap 8 (5-15) Blood Urea Nitrogen 9 mg/dL (9-23) Creatinine 0.71 mg/dL (0.550-1.02) Glomerular Filtration Rate Calc 95 mL/min (>90) BUN/Creatinine Ratio 12.7 (10.0-20.0) Serum Glucose 171 mg/dL (74-106) Calcium Level 10.2 mg/dL (8.7-10.4) Total Bilirubin 1.5 mg/dL (0.2-1.0) Aspartate Amino Transf (AST/SGOT) 24 U/L (13-40) Alanine Aminotransferase (ALT/SGPT) 17 U/L (7-40) Alkaline Phosphatase 38 U/L (46-116) Total Protein 6.6 g/dL (5.7-8.2) Albumin 4.0 g/dL (3.2-4.8) Bedside Glucose 150 mg/dl (70-106) Appearance: Stated age Psychomotor activity: WNL Behavioral: Cooperative Eye contact: Appropriate Speech: WNL Affect: Appropriate, Mood Congruent Mood: Dysphoric, Neutral Thought processes: Linear/Goal-directed Thought content: WNL Suicidal ideations: Absent Homicidal ideations: Absent Orientation: Person, Place, Time, Situation Memory intact: Recent Intellect: Average Abstractability: WNL Concentration: Adequate Attention: Adequate Judgement: WNL Insight: Good Vitals Vital Signs Date Time Temp Pulse Resp B/P (MAP) Pulse Ox O2 Delivery O2 Flow Rate FiO2 03/11/24 10:24 97.7 107 17 123/75 (91) 97 97.7 Treatment plan discussed: With staff, Family Medication adjusted: Yes Labs ordered: No Psychotherapy provided: No Type: Voluntary History of Present Illness Reason for Consult : psychiatric evaluation for suicidal ideation HPI: The patient was seen and evaluated at [facility] ED via telepsychiatry platform. 63 yr old female was referred from recovery room as she expressed some suicidal thoughts following her EGD. She noted she suffers from neuropathy in both legs. She told her nurse that if life continued like that, she doesn't think life is worth living. She stated she never considered killing herself and she is hindu and she doesn't believe in harming herself. She noted that her pain is very high. She noted she has no appetite and feels like throwing up when she eats. She said the pain in her legs and stomach are unbearable to her. She noted she has lost much weight and she currently weighs 86 lbs because she has no appetite and has stomach pain. She noted she sleeps poorly due to the pain as well. She denied having suicidal and homicidal ideation and auditory and visual hallucinations. Past Psychiatric History : No h/o hospitalization, treatment or suicide attempts. Past Medical History: DM, peripheral neuropathy in both legs Current Medications: Gabapentin 400mg BID Lantus insulin NKDA Substance use: Denied other alcohol or substance use. Social History : Lives in [place] with . Together since 2009 andmarried 1.5 yrs ago. No children. Cannot work, bedridden and wheelchair bound. Diagnosis: CHRONIC PAIN (diabetic peripheral neuropathy and abdominal pain) Formulation: This 63 yr old female appears to suffer from chronic pain which makes her life difficult living. However she denied having any suicidal ideation, plan or intent and does not warrant psychiatric hospitalization. She may benefit from better pain management such as increasing her gabapentin, starting cymbalta and starting remeron to help with sleep and appetite. Plan: 1. The patient is psychologically cleared for discharge. 2. Legal-voluntary. 3. Medications: I recommend starting the following medications and giving the patient a prescription for 30 days and one refill of the following: Mirtazapine (remeron) 7.5 mg PO qhs for sleep Duloxetine (Cymbalta) 20mg PO qam for peripheral neuropathy and increase gabapentin to 400mg PO TID 4. Follow up with outpatient mental health for medication management and therapy. Also follow up with PCM and consider pain management consult if pain persists. 5. Please contact psychiatry if further follow up or reevaluation is desired. 6. Case discussed with LONNIE Acevedo. Assessment/Diagnosis/Plan Reviewed: Labs, Medications, Previous Orders GEOVANNY IBANEZ MD Mar 11, 2024 15:02
== END 2024-03-11 15:10 | disposition home or self-care (01) ==
LOC: GI 09:05
PROVIDERS: ATTEND Specialist
DX: R63.4 Abnormal weight loss (principal); K29.50 Unspecified chronic gastritis without bleeding; K22.10 Ulcer of esophagus without bleeding; K59.09 Other constipation; E11.42 Type 2 diabetes mellitus with diabetic polyneuropathy; Z80.3 Family history of malignant neoplasm of breast; Z83.3 Family history of diabetes mellitus; Z79.4 Long term (current) use of insulin; Z79.899 Other long term (current) drug therapy
CPT/HCPCS: 36415; 43239; 80053; 82962; 85025; 85610; 85730; 88305; 88312; 88342; J2250; J3010; 99152

== ENCOUNTER → 2024-06-17 | Outpatient (CLI) | payer MEDICAID ==
[2024-06-17 07:18] LABS: Urine Bacteria None Seen /hpf (None Seen)
[2024-06-17 07:51] LABS: Urine Blood Negative /uL (Negative); Urine Clarity Clear (Clear); Urine Color Light-Yellow (Yellow); Urine Protein, UAD Negative (Negative); Urine Specific Gravity 1.014 (1.001-1.035); Urine Squamous Epithelial Cell FEW /hpf (<5); Urine Urobilinogen Normal (Negative); Urine WBC 2 /HPF (0-5); Urine pH 7.5 (5.0-9.0)
[2024-06-17 08:21] LABS: Alanine Aminotransferase 16 U/L (7-40); Albumin 4.1 g/dL (3.2-4.8); Anion Gap 8 (5-15); Aspartate Aminotransferase 18 U/L (13-40); Blood Urea Nitrogen 12 mg/dL (9-23); Calcium 9.7 mg/dL (8.7-10.4); Carbon Dioxide 29 mmol/L (20-31); Chloride 99 mmol/L (98-107); Cholesterol 187 mg/dL (< 200); HDL Cholesterol 51 mg/dL (40-59); Potassium 3.7 mmol/L (3.5-5.1); Sodium 136 mmol/L (136-145); Total Protein 6.5 g/dL (5.7-8.2); Triglycerides 81 mg/dL (< 150)
[2024-06-17 08:23] LABS: Alkaline Phosphatase 45 U/L (46-116); Bilirubin, Total 1.4 mg/dL (0.2-1.0); Glucose 108 mg/dL (74-106); LDL Cholesterol 125 mg/dL (< 100)
[2024-06-17 08:24] LABS: Basophils # (auto) 0 10 ^3/uL (0-0.2); Basophils % (auto) 0.8 % (0.0-2.0); Eosinophils # (auto) 0.1 10 ^3/uL (0-0.8); Eosinophils % (auto) 2.8 % (0.0-7.0); Hematocrit 36.7 % (36.0-46.0); Hemoglobin 12.7 g/dL (12.2-16.2); Lymphocytes # (auto) 1.8 10 ^3/uL (0.4-5.4); Lymphocytes % (auto) 48.7 % (10.0-50.0); Mean Corpuscular Hemoglobin 29.8 pg (28.0-32.0); Mean Corpuscular Hgb Conc. 34.5 g/dL (32.0-36.0); Mean Corpuscular Volume 86.3 fL (80.0-100.0); Monocytes # (auto) 0.3 10 ^3/uL (0-1.3); Monocytes % (auto) 7.4 % (0.0-12.0); Neutrophils # (auto) 1.5 10 ^3/uL (1.6-8.6); Neutrophils % (auto) 40.3 % (37.0-80.0); Nucleated Red Blood Cells % 0.1 %; Platelet Count (auto) 218 10^3/uL (140-450); Red Blood Cells 4.25 10^6/uL (4.0-5.20); Red Cell Distribution Width 14.4 % (11.8-14.3); White Blood Cell 3.8 10^3/uL (4.4-10.8)
[2024-06-17 08:32] LABS: Creatinine, Urine 43.84 mg/dL (30.0-125.0)
[2024-06-17 08:42] LABS: Micro Albumin < 3.0 mg/L (<30.0)
== END | disposition home or self-care (01) ==
LOC: LAB 07:07
PROVIDERS: ATTEND Internal Medicine
DX: I12.9 Hypertensive chronic kidney disease with stage 1 through stage 4 chronic kidney disease, or unspecified chronic kidney disease (principal); E11.22 Type 2 diabetes mellitus with diabetic chronic kidney disease; N18.2 Chronic kidney disease, stage 2 (mild); E11.65 Type 2 diabetes mellitus with hyperglycemia; R03.0 Elevated blood-pressure reading, without diagnosis of hypertension; Z00.01 Encounter for general adult medical examination with abnormal findings
CPT/HCPCS: 36415; 80053; 80061; 81001; 82043; 82570; 83036; 84439; 84443; 85025

== ENCOUNTER 2024-09-02 00:43 | Emergency (ER) | payer MEDICAID ==
[~2024-09-02] VITALS: Ht 165.1 cm; Wt 54.5 kg
--- NOTE | 2024-09-02 02:03 | ED.PDOC ---
History of Present Illness HPI Comments 64 y/o F with history of DM BIBA c/o painful urination, nausea and vomiting. Per EMS, patient reports having symptoms since yesterday morning. Pt state she vomited once in the morning and once in the evening after eating dinner. EMS reports pt was hyperglycemic at 500 and had initial BP of 100 systolic, with a slight fever. En route, patient was given 500ml NS bolus following left AC placement. On arrival to ED accucheck was 356. Patient reports taking her insulin as prescribed, with last dose taken around dinner time. Pt states she is taking OTC medication for her UTI symptoms and is not on antibiotics. She denies any vaginal bleeding, hematuria, hematemesis, diarrhea, or other associated symptoms. Chief Complaint: Hyperglycemia Time Seen by MD: 01:00 Primary Care Provider: UNKNOWN Reviewed Notes: Nurses Notes, Medications, Allergies Allergies: Coded Allergies: No Known Drug Allergy (Verified Allergy, Unknown, 03/05/24) Home Meds Active Scripts Insulin Glargine (Lantus) 100 Unit/Ml Inj, 15 UNITS SC DAILY for 30 Days, #1000 UNITS 3 Refills Prov:OHCOA MANCUSO RESIDENT 11/27/23 Blood Glucose Monitoring Suppl (D-Care Glucometer Kit/Glu W/Device) 1 Kit Kit, KIT XX TID, #1 Measure Blood glucose 3 times before meal. Prov:OCHOA MANCUSO RESIDENT 11/27/23 Reported Medications Gabapentin (Gabapentin) 100 Mg Cap, 100 MG PO BID for 30 Days, MG 03/05/24 Information Source: Patient, Emergency Med Personnel Mode of Arrival: EMS Severity: Moderate Timing: Hours Duration: Since onset Prehospital treatment: None Past Medical History PAST MEDICAL HISTORY: DM Past Medical History (Other): chronic leg pain Surgical History: Denies all surgeries INFECTION CONTROL NURSE History: No Pertinent INFECTION CONTROL NURSE History Family History Family History: Reviewed,noncontributory to illness Social History Smoker: Non-Smoker Alcohol: Denies ETOH Use Drugs: Denies Drug Use Lives In: Home All Other Systems: Reviewed and Negative (Comprehensive systems review obtained and negative except for what is stated in the HPI.) Physical Exam General Appearance: No Apparent Distress HEENT: Other (Pupils and face symmetric. Moist mucous membranes.) Neck: Full Range of Motion, Normal Inspection Respiratory: Lungs Clear, No Accessory Muscle Use, No Respiratory Distress, Normal Breath Sounds Cardiovascular: No Edema, No JVD, Tachycardia Breast Exam: Deferred Gastrointestinal: Non Tender, Soft Genitalia: Deferred Pelvic: Deferred Rectal: Deferred Extremities: Normal inspection, Normal range of motion, Non-tender, No pedal edema Neurologic: Alert (Oriented x4), Normal Affect, Normal Mood, Other (Ambulatory) Cerebellar Function: NOT DONE Reflexes: NOT DONE Skin: Dry, Normal Color, Warm Lymphatic: NOT DONE Was a procedure done? Was a procedure done?: No Differential Dx Considerations may include: Hyperglycemia, DKA, hypovolemia/dehydration, electrolyte imbalance, UTI, pyelonephritis, gastritis, gastroenteritis, diverticulitis, among others X-Ray, Labs, Meds, VS Vital Signs Date Time Temp Pulse Resp B/P (MAP) Pulse Ox O2 Delivery O2 Flow Rate FiO2 09/02/24 02:28 99.3 101 18 88/53 (65) 96 99.3 09/02/24 02:28 101 18 96 Room Air* 0 21 09/02/24 01:05 99.8 117 20 100/68 (79) 96 99.8 Lab Test 09/02/24 04:21 09/02/24 03:04 09/02/24 02:08 09/02/24 01:58 Range/Units Urine Color Pending Urine Clarity Pending Urine pH Pending Urine Specific [place] Pending Urine Protein Pending Urine Ketones Pending Urine Blood Pending Urine Nitrite Pending Urine Bilirubin Pending Urine Urobilinogen Pending Urine Leukocyte Esterase Pending Urine RBC Pending Urine Microscopic WBC Pending Urine Squamous Epithelial Cells Pending Urine Bacteria Pending Urine Glucose Pending Troponin I High Sensitivity < 3 L < 3 L </=34 ng/L POC Glucose 382 H 70-106 mg/dl White Blood Count 6.2 4.4-10.8 10^3/uL Red Blood Count 4.05 4.0-5.20 10^6/uL Hemoglobin 12.1 L 12.2-16.2 g/dL Hematocrit 33.9 L 36.0-46.0 % Mean Corpuscular Volume 83.6 80.0-100.0 fL Mean Corpuscular Hemoglobin 29.9 28.0-32.0 pg Mean Corpuscular Hemoglobin Concent 35.7 32.0-36.0 g/dL Red Cell Distribution Width 13.3 11.8-14.3 % Platelet Count 185 140-450 10^3/uL Mean Platelet Volume 8.0 6.9-10.8 fL Neutrophils (%) (Auto) 77.2 37.0-80.0 % Lymphocytes (%) (Auto) 12.3 10.0-50.0 % Monocytes (%) (Auto) 9.8 0.0-12.0 % Eosinophils (%) (Auto) 0.1 0.0-7.0 % Basophils (%) (Auto) 0.6 0.0-2.0 % Neutrophils # (Auto) 4.8 1.6-8.6 10 ^3/uL Lymphocytes # (Auto) 0.8 0.4-5.4 10 ^3/uL Monocytes # (Auto) 0.6 0-1.3 10 ^3/uL Eosinophils # (Auto) 0 0-0.8 10 ^3/uL Basophils # (Auto) 0 0-0.2 10 ^3/uL Nucleated Red Blood Cells 0.1 % Sodium Level 131 L 136-145 mmol/L Potassium Level 4.1 3.5-5.1 mmol/L Chloride Level 99 98-107 mmol/L Carbon Dioxide Level 24 20-31 mmol/L Anion Gap 8 5-15 Blood Urea Nitrogen 22 9-23 mg/dL Creatinine 1.00 0.550-1.02 mg/dL Glomerular Filtration Rate Calc 63 >90 mL/min BUN/Creatinine Ratio 22.0 H 10.0-20.0 Serum Glucose 405 *H 74-106 mg/dL Lactic Acid Level 1.2 0.4-2.0 mmol/L Calcium Level 9.9 8.7-10.4 mg/dL B-Type Natriuretic Peptide 49.31 0-100 pg/mL Beta-Hydroxybutyric Acid Pending Current Medications Medications (Trade) Dose Ordered Sig/Aryan Route Start Time Stop Time Status Last Admin Sodium Chloride 1,000 ml @ 1,000 mls/hr Q1H ONCE IV 09/02/24 01:45 09/02/24 02:44 DC 09/02/24 02:18 Insulin Human Regular (InsuLIN R) 4 units ONCE ONCE IV 09/02/24 01:45 09/02/24 01:46 DC 09/02/24 02:17 Ceftriaxone Sodium 50 ml @ 100 mls/hr ONCE ONCE IV 09/02/24 01:45 09/02/24 02:14 DC 09/02/24 02:17 X-Ray, Labs, Meds, VS Comment 64-year-old female with a history of diabetes presenting with hyperglycemia, nausea, vomiting and dysuria today Vitals remarkable for temperature 99.8, heart rate 117 Exam remarkable for tachycardia Rhythm strip independently interpreted by me: Sinus tach, rate 117, no ectopy. CBC unremarkable, basic metabolic panel remarkable for sodium 131, glucose 499, normal anion gap, UA abnormal consistent with UTI, lactate normal, BNP and troponin negative Patient treated with the following in the ED: 1 L 0.9 normal saline IV bolus, Zofran 4 mg IV, regular insulin 4 units IV, Rocephin 1 g IV On re-evaluation, blood glucose is improving. Other vitals were stable. Hospitalization was considered, however patient had rapid improvement of symptoms in the ED, now states she feels well enough to go home, and I no longer feel hospitalization is necessary. Patient now appears stable for discharge with close outpatient follow-up with her primary physician. Rx cephalexin, Zofran, Tylenol, Pyridium Time of 1ST Reevaluation: 01:30 Reevaluation 1ST: Unchanged Time of 2ND Reevaluation: 04:45 Reevaluation 2ND: Improved Patient Education/Counseling: Diagnosis, Treatment Family Education/Counseling: No Family Present Departure 1 Departure Time of Disposition: 04:45 Impression: Primary Impression: UTI (urinary tract infection) Qualified Codes: N39.0 - Urinary tract infection, site not specified Additional Impression: Hyperglycemia Disposition: 01 HOME / SELF CARE / HOMELESS Condition: Stable Additional Instructions: Your blood tests showed you have a high blood glucose and your urine test showed you have a urinary tract infection. I have prescribed antibiotics, pain medication, and medication for nausea. Follow-up with your primary doctor in 1- 2 days. Return to ER for persistent or worsening symptoms. e-Prescriptions Phenazopyridine HCl (Phenazopyridine Hydrochol) 200 Mg Tab 200 MG PO TID PRN, #9 TAB Prn urinary pain Prov: HUONG KHAN MD 09/02/24 Acetaminophen (Tylenol Extra Strength) 500 Mg Tab 1000 MG PO Q6HP PRN, #30 TAB Prn pain or fever Prov: HUONG KHAN MD 09/02/24 Ondansetron Odt 4MG Tab (ZOFRAN PO) 4 Mg Tb 4 MG PO TID PRN, #30 TAB Prn nausea or vomiting ODT TAB-DISSOLVE IN MOUTH, THEN SWALLOW Prov: HUONG KHAN MD 09/02/24 Cephalexin Monohydrate (Cephalexin) 500 Mg Cap 1 CAP PO QID for 10 Days, #40 CAP Prov: HUONG KHAN MD 09/02/24 Discharged With: Relative Critical Care Note Critical Care Time?: No Stability Stability form required: No Heart Score Heart Score: Heart Score Response (Comments) Value History N/A 0 EKG N/A 0 Age N/A 0 Risk Factors N/A 0 Troponin N/A 0 Total 0 I personally scribed for HUONG KHAN MD ([email or web address]) on 09/02/24 at 02:03. Electronically submitted by Kevin Ramesh [email or web address]). HUONG KHAN MD September 02, 2024 02:03
[2024-09-02 02:13] LABS: Basophils # (auto) 0 10 ^3/uL (0-0.2); Basophils % (auto) 0.6 % (0.0-2.0); Eosinophils # (auto) 0 10 ^3/uL (0-0.8); Eosinophils % (auto) 0.1 % (0.0-7.0); Hematocrit 33.9 % (36.0-46.0); Hemoglobin 12.1 g/dL (12.2-16.2); Lymphocytes # (auto) 0.8 10 ^3/uL (0.4-5.4); Lymphocytes % (auto) 12.3 % (10.0-50.0); Mean Corpuscular Hemoglobin 29.9 pg (28.0-32.0); Mean Corpuscular Hgb Conc. 35.7 g/dL (32.0-36.0); Mean Corpuscular Volume 83.6 fL (80.0-100.0); Monocytes # (auto) 0.6 10 ^3/uL (0-1.3); Monocytes % (auto) 9.8 % (0.0-12.0); Neutrophils # (auto) 4.8 10 ^3/uL (1.6-8.6); Neutrophils % (auto) 77.2 % (37.0-80.0); Nucleated Red Blood Cells % 0.1 %; Platelet Count (auto) 185 10^3/uL (140-450); Red Blood Cells 4.05 10^6/uL (4.0-5.20); Red Cell Distribution Width 13.3 % (11.8-14.3); White Blood Cell 6.2 10^3/uL (4.4-10.8)
[2024-09-02] MEDS: InsuLIN REG 1unit/0.01ml Soln (100units/ml) IV ONE (02:17)
[2024-09-02] MEDS: cefTRIAXone 1GM/50ML D5W 50 ML IV ONE (02:17)
[2024-09-02] MEDS: SODIUM CHLORIDE 0.9% 1,000 ML IV ONE (02:18)
[2024-09-02 02:28] VITALS: PULSE 101; RESP 18; O2SAT 96
[2024-09-02 03:19] LABS: Chloride 99 mmol/L (98-107); Potassium 4.1 mmol/L (3.5-5.1)
[2024-09-02 03:20] LABS: Anion Gap 8 (5-15); Carbon Dioxide 24 mmol/L (20-31)
[2024-09-02 03:21] LABS: Calcium 9.9 mg/dL (8.7-10.4)
[2024-09-02 03:25] LABS: Blood Urea Nitrogen 22 mg/dL (9-23)
[2024-09-02 03:51] LABS: Sodium 131 mmol/L (136-145)
[2024-09-02 03:52] LABS: Glucose 405 mg/dL (74-106)
[2024-09-02 04:28] LABS: Urine Bacteria None Seen /hpf (None Seen)
[2024-09-02] MEDS ORDERED: ACET-1304 PO (04:42)
[2024-09-02] MEDS ORDERED: PHEN-1045 PO (04:42)
[2024-09-02] MEDS ORDERED: ZOFR4T PO (04:42)
[2024-09-02] MEDS ORDERED: CEPH500C PO (04:42)
[2024-09-02 04:53] LABS: Urine Blood 1+ /uL (Negative); Urine Clarity Ex.Turbid (Clear); Urine Color Colorless (Yellow); Urine Mucus FEW (None Seen); Urine Protein, UAD 1+ (Negative); Urine Specific Gravity 1.021 (1.001-1.035); Urine Squamous Epithelial Cell FEW /hpf (<5); Urine Urobilinogen Normal (Negative); Urine WBC 1488 /HPF (0-5); Urine WBC Clumps PRESENT /hpf (None Seen)
[2024-09-02 05:34] VITALS: BP 104/73; PULSE 94; RESP 14; TEMP 98.7; O2SAT 94
== END 2024-09-02 05:35 | disposition home or self-care (01) ==
LOC: ER 00:43 → EDBD 00:43 → ER 05:35
DX: N39.0 Urinary tract infection, site not specified (principal); E11.65 Type 2 diabetes mellitus with hyperglycemia; G89.29 Other chronic pain; Z79.899 Other long term (current) drug therapy; Z79.4 Long term (current) use of insulin
CPT/HCPCS: 36415; 80048; 81001; 82010; 82947; 83605; 83880; 84484; 85025; 87040; 87086; 96365; 96366; 96375; 99284; J0696; J1815; 82962; 87077; 87186

== ENCOUNTER 2024-09-03 09:24 | Inpatient (IN) | payer MEDICAID ==
[~2024-09-03] VITALS: Ht 160 cm; Wt 52.7 kg
[~2024-09-03 09:24] MED LIST changes: +ACET-1304 PO; +CEPH500C PO; +PHEN-1045 PO; +ZOFR4T PO
--- NOTE | 2024-09-03 10:36 | ED.PDOC ---
History of Present Illness HPI Comments 64 year old female YAMILA presents to the ED with chief complaint of generalized weakness. Patient reports that she was seen in the ED yesterday for generalized weakness and was diagnosed with a UTI, being sent home with antibiotics. Patient relays that she visited her PCP Dr. Girard regarding her recent visit and was advised to come back to the ED for IV antibiotics due to having symptoms of generalized weakness, left neck pain, and left ear pain. Patient denies any N/V/D, fever, chills, dysuria, hematuria, or chest pain. Chief Complaint: General Weakness Time Seen by MD: 10:30 Primary Care Provider: UNKNOWN Reviewed Notes: Nurses Notes, Refrigeration Installer Notes, Medications, Allergies Allergies: Coded Allergies: No Known Drug Allergy (Verified Allergy, Unknown, 03/05/24) Home Meds Active Scripts Phenazopyridine HCl (Phenazopyridine Hydrochol) 200 Mg Tab, 200 MG PO TID PRN, #9 TAB Prn urinary pain Prov:HUONG KHAN MD 09/02/24 Acetaminophen (Tylenol Extra Strength) 500 Mg Tab, 1000 MG PO Q6HP PRN, #30 TAB Prn pain or fever Prov:HUONG KHAN MD 09/02/24 Ondansetron Odt 4MG Tab (ZOFRAN PO) 4 Mg Tb, 4 MG PO TID PRN, #30 TAB Prn nausea or vomiting ODT TAB-DISSOLVE IN MOUTH, THEN SWALLOW Prov:HUONG KHAN MD 09/02/24 Cephalexin Monohydrate (Cephalexin) 500 Mg Cap, 1 CAP PO QID for 10 Days, #40 CAP Prov:HUONG KHAN MD 09/02/24 Insulin Glargine (Lantus) 100 Unit/Ml Inj, 15 UNITS SC DAILY for 30 Days, #1000 UNITS 3 Refills Prov:OCHOA MANCUSO RESIDENT 11/27/23 Blood Glucose Monitoring Suppl (D-Care Glucometer Kit/Glu W/Device) 1 Kit Kit, KIT XX TID, #1 Measure Blood glucose 3 times before meal. 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 History Family History Family History: Reviewed,noncontributory to illness Social History Smoker: Non-Smoker Alcohol: Denies ETOH Use Drugs: Denies Drug Use Lives In: Home Constitutional: reports: weakness; denies: chills, diaphoresis, fatigue, fever, malaise, sweats, others EENTM: reports: ear pain; denies: blurred vision, double vision, ear bleeding, ear discharge, ear drainage, ear ringing, eye pain, eye redness, hearing loss, mouth pain, mouth swelling, nasal discharge, nose bleeding, nose congestion, nose pain, photophobia, tearing, throat pain, throat swelling, voice changes, others Respiratory: denies: cough, hemoptysis, orthopnea, SOB at rest, shortness of breath, SOB with excertion, stridor, wheezing, others Cardiovascular: denies: chest pain, dizzy spells, diaphoresis, Dyspnea on exertion, edema, irregular heart beat, left arm pain, lightheadedness, palpitations, PND, syncope, others Gastrointestinal: denies: abdomen distended, abdominal pain, blood streaked bowels, constipated, diarrhea, dysphagia, difficulty swallowing, hematemesis, melena, nausea, poor appetite, poor fluid intake, rectal bleeding, rectal pain, vomiting, others Genitourinary: denies: abnormal vagina bleeding, burning, dyspareunia, dysuria, flank pain, frequency, hematuria, incontinence, pain, , vagina discharge, urgency, others Neurological: denies: dizziness, fainting, headache, left sided numbness, left sided weakness, numbness, paresthesia, pre-existing deficit, right sided numbness, right sided weakness, seizure, speech problems, tingling, tremors, weakness, others Musculoskeletal: reports: neck pain; denies: back pain, gout, joint pain, joint swelling, muscle pain, muscle stiffness, others Integumetry: denies: bruises, change in color, change in hair/nails, dryness, laceration, lesions, lumps, rash, wounds, others Allergic/Immunocompromised: denies: Difficulty Healing, Frequent Infections, Hives, Itching, others Hematologic/Lymphatic: denies: anemia, blood clots, easy bleeding, easy bruising, swollen glands, others Endocrine: denies: excessive hunger, excessive sweating, excessive thirst, excessive urination, flushing, intolerance to cold, intolerance to heat, unexplained weight gain, unexplained weight loss, others Psychiatric: denies: anxiety, bipolar disorder, depression, hopeless, panic disorder, schizophrenia, sleepless, suicidal, others All Other Systems: Reviewed and Negative Physical Exam General Appearance: No Apparent Distress, Normal HEENT: Normal ENT Inspection, Pharynx Normal, TMs Normal Neck: Full Range of Motion, Non-Tender, Normal, Normal Inspection Respiratory: Chest Non-Tender, Lungs Clear, No Accessory Muscle Use, No Respiratory Distress, Normal Breath Sounds Cardiovascular: No Edema, No JVD, No Murmur, No Gallop, Normal Peripheral Pulses, Regular Rate/Rhythm Breast Exam: Deferred Gastrointestinal: No Organomegaly, Non Tender, No Pulsatile Mass, Normal Bowel Sounds, Soft Genitalia: Deferred Pelvic: Deferred Rectal: Deferred Extremities: No calf tenderness, Normal capillary refill, Normal inspection, Normal range of motion, Non-tender, No pedal edema Musculoskeletal : Apperance: Normal Neurologic: Alert, transmitter operator II-XII nml as Tested, No Motor Deficits, Normal Affect, Normal Mood, No Sensory Deficits Cerebellar Function: Normal Reflexes: Normal Skin: Dry, Normal Color, Warm Lymphatic: No Adenopathy Was a procedure done? Was a procedure done?: No Differential Dx Considerations may include: UTI, sepsis X-Ray, Labs, Meds, VS Vital Signs Date Time Temp Pulse Resp B/P (MAP) Pulse Ox O2 Delivery O2 Flow Rate FiO2 09/03/24 09:54 98.1 93 15 107/55 (72) 98 98.1 09/03/24 09:45 99.2 87 16 107/63 (78) 98 99.2 09/03/24 09:30 85 Lab Test 09/03/24 10:14 Range/Units White Blood Count 6.3 4.4-10.8 10^3/uL Red Blood Count 3.93 L 4.0-5.20 10^6/uL Hemoglobin 11.3 L 12.2-16.2 g/dL Hematocrit 33.0 L 36.0-46.0 % Mean Corpuscular Volume 83.9 80.0-100.0 fL Mean Corpuscular Hemoglobin 28.8 28.0-32.0 pg Mean Corpuscular Hemoglobin Concent 34.4 32.0-36.0 g/dL Red Cell Distribution Width 13.5 11.8-14.3 % Platelet Count 180 140-450 10^3/uL Mean Platelet Volume 8.0 6.9-10.8 fL Neutrophils (%) (Auto) 78.2 37.0-80.0 % Lymphocytes (%) (Auto) 14.9 10.0-50.0 % Monocytes (%) (Auto) 6.1 0.0-12.0 % Eosinophils (%) (Auto) 0.5 0.0-7.0 % Basophils (%) (Auto) 0.3 0.0-2.0 % Neutrophils # (Auto) 4.9 1.6-8.6 10 ^3/uL Lymphocytes # (Auto) 0.9 0.4-5.4 10 ^3/uL Monocytes # (Auto) 0.4 0-1.3 10 ^3/uL Eosinophils # (Auto) 0 0-0.8 10 ^3/uL Basophils # (Auto) 0 0-0.2 10 ^3/uL Nucleated Red Blood Cells 0.0 % Sodium Level 132 L 136-145 mmol/L Potassium Level 4.0 3.5-5.1 mmol/L Chloride Level 97 L 98-107 mmol/L Carbon Dioxide Level 27 20-31 mmol/L Anion Gap 8 5-15 Blood Urea Nitrogen 14 9-23 mg/dL Creatinine 0.73 0.550-1.02 mg/dL Glomerular Filtration Rate Calc 92 >90 mL/min BUN/Creatinine Ratio 19.2 10.0-20.0 Serum Glucose 362 H 74-106 mg/dL Lactic Acid Level 1.1 0.4-2.0 mmol/L Calcium Level 9.9 8.7-10.4 mg/dL Total Bilirubin 0.8 0.2-1.0 mg/dL Aspartate Amino Transferase (AST) 20 13-40 U/L Alanine Aminotransferase (ALT) 19 7-40 U/L Alkaline Phosphatase 91 46-116 U/L Total Protein 7.0 5.7-8.2 g/dL Albumin 4.2 3.2-4.8 g/dL Time of 1ST Reevaluation: 11:30 Reevaluation 1ST: Unchanged Patient Education/Counseling: Diagnosis, Treatment Family Education/Counseling: No Family Present Additional Information Previous visits reviewed: 09/02/24 for UTI The following tests were ordered, and results were reviewed by me: Blood culture, Lactic, UA, CBC, CMP, EKG Additional Information was gathered from interviewing the following independent historians: EMS I reviewed and agreed with the following test results read by other providers: None I discussed treatment and results with medical personnel and: patient Comprehensive systems review obtained and negative except for what is stated in the HPI. Departure 1 Departure Time of Disposition: 11:09 (Patient presents with a positive blood cultures. Patient with a worsening urinary symptoms. We will empirically cover patient with fluids and antibiotics admit patient for further workup.) Impression: Primary Impression: Positive blood cultures Additional Impressions: Urinary tract infection Qualified Codes: N30.01 - Acute cystitis with hematuria Generalized weakness Disposition: 09 ADMITTED INPATIENT Admit to: Med Surg Condition: Serious Critical Care Note Critical Care Time?: Yes Critical care comment: Concern for sepsis Authorized and Performed by: Marline Gonzalez MD Total critical care time: Approximately 33 minutes Due to a high probability of clinically significant, life threatening deterioration, the patient required my highest level of preparedness to intervene emergently and I personally spent this critical care time directly and personally managing the patient. This critical care time included obtaining a history; examining the patient; pulse oximetry; ordering and review of studies; arranging urgent treatment with development of a management plan; evaluation of patient's response to treatment; frequent reassessment; and, discussions with other providers. This critical care time was performed to assess and manage the high probability of imminent, life-threatening deterioration that could result in multi-organ failure. It was exclusive of separately billable procedures and treating other patients and teaching time. Please see my other sections and the rest of the note for further information on patient assessment and treatment. Stability Stability form required: No Heart Score Heart Score: Heart Score Response (Comments) Value History N/A 0 EKG N/A 0 Age N/A 0 Risk Factors N/A 0 Troponin N/A 0 Total 0 I personally scribed for MARLINE GONZALEZ MD ([email or web address]) on 09/03/24 at 10:36. Electronically submitted by Sonu Hu ([email or web address]). MARLINE GONZALEZ MD September 03, 2024 10:36
[2024-09-03 10:39] LABS: Basophils # (auto) 0 10 ^3/uL (0-0.2); Basophils % (auto) 0.3 % (0.0-2.0); Eosinophils # (auto) 0 10 ^3/uL (0-0.8); Eosinophils % (auto) 0.5 % (0.0-7.0); Hemoglobin 11.3 g/dL (12.2-16.2); Lymphocytes # (auto) 0.9 10 ^3/uL (0.4-5.4); Lymphocytes % (auto) 14.9 % (10.0-50.0); Mean Corpuscular Hemoglobin 28.8 pg (28.0-32.0); Mean Corpuscular Hgb Conc. 34.4 g/dL (32.0-36.0); Mean Corpuscular Volume 83.9 fL (80.0-100.0); Monocytes # (auto) 0.4 10 ^3/uL (0-1.3); Monocytes % (auto) 6.1 % (0.0-12.0); Neutrophils # (auto) 4.9 10 ^3/uL (1.6-8.6); Neutrophils % (auto) 78.2 % (37.0-80.0); Platelet Count (auto) 180 10^3/uL (140-450); Red Blood Cells 3.93 10^6/uL (4.0-5.20); Red Cell Distribution Width 13.5 % (11.8-14.3); White Blood Cell 6.3 10^3/uL (4.4-10.8)
[2024-09-03 10:55] LABS: Alanine Aminotransferase 19 U/L (7-40); Albumin 4.2 g/dL (3.2-4.8); Alkaline Phosphatase 91 U/L (46-116); Anion Gap 8 (5-15); Aspartate Aminotransferase 20 U/L (13-40); BUN/Creatinine Ratio 19.2 (10.0-20.0); Bilirubin, Total 0.8 mg/dL (0.2-1.0); Blood Urea Nitrogen 14 mg/dL (9-23); Calcium 9.9 mg/dL (8.7-10.4); Carbon Dioxide 27 mmol/L (20-31)
[2024-09-03 10:56] LABS: Chloride 97 mmol/L (98-107); Glucose 362 mg/dL (74-106); Sodium 132 mmol/L (136-145)
--- NOTE | 2024-09-03 13:23 | DVH ---
CT HEAD WITHOUT CONTRAST INDICATION: neck pain and gen weakness EXAM DATE: 09/03/2024 12:52 PM COMPARISON: CT HEAD WITHOUT CONTRAST on DOS: 11/27/23 RADIATION DOSE: CTDIvol: 52.14 mGy, DLP: 923.38 mGy*cm PROCEDURE: CT scans of the head were obtained from the vertex to the skull base. Sagittal and coronal reconstructions were provided. All CT scans at this medical facility are performed using dose modulation techniques as appropriate t o a performed exam including the following: Automated exposure control was utilized; adjustment of th e MA and/or KV according to patient size; and use of iterative reconstruction technique. FINDINGS: Bilateral basal ganglia mineralization, similar to prior. There is sulcal and ventricular prominence. The brain other shows normal morphology and rehman-white matter differentiation, without in tracranial hemorrhage, extra-axial fluid collection, mass effect or acute large vessel infarct. The v entricles are normal in size. The basal cisterns are patent. The skull and visible facial bones are i ntact. The paranasal sinuses, mastoid air cells and middle ear cavities are well-aerated. The soft ti ssues of the scalp are unremarkable. IMPRESSION: Bilateral basal ganglia mineralization, similar to prior. No acute intracranial abnormality.
--- NOTE | 2024-09-03 13:24 | DVH ---
EXAM: XY CHEST XRAY 1 VIEW Indication: Pain; r/o pna Technique: Single frontal view of the chest was obtained Comparison: XY CHEST PORTABLE on DOS: 12/23/23, XY CHEST PORTABLE on DOS: 11/19/23 FINDINGS: Lines and Tubes: None Lungs: No focal consolidation. Pleura: No effusion. No pneumothorax. Cardiomediastinal contours: Unremarkable Bones: No acute osseous abnormality. IMPRESSION: No acute cardiopulmonary disease.
[2024-09-03] MEDS ORDERED: VANCOMYCIN PER PHARMACY 0 MG IV SCH (13:45)
[2024-09-03] MEDS ORDERED: HYDROcodone-ACET 5/325MG TAB PO PRN (13:45)
[2024-09-03] MEDS ORDERED: ONDANSETRON HCL 4 MG/2 ML VIAL IV PRN (13:45)
[2024-09-03] MEDS ORDERED: DEXTROSE (50%) 50ML SYRG IV PRN ×2 (13:45→14:00)
--- NOTE | 2024-09-03 13:56 | DVHHP2 ---
History of Present Illness Reason for Visit: Generalized weakness History of Present Illness Ignacia Badillo 64-year-old female with past medical history of diabetes, neuropathy, UTIs, EGD with biopsy, and skin cancer who presents to the ED with generalized weakness, left-sided neck pain that radiates to the back and left arm. Patient reports that she has been sleeping on the left arm and he gets numb. She also states that she has been having gas pain. Her has been having years at the chair side. Patient reports that she went to see her PCP yesterday received antibiotics for a UTI but states that she was advised to come here to get IV antibiotics. Patient denies any chest pain, shortness of breath, fever, chills, lightheadedness, dizziness, recent trauma or injury, recent sick contacts, recent travels, abdominal pain, nausea, vomiting, or diarrhea. Renal/: UTI Endocrine: Diabetes Past Medical History Neuropathy Past Surgical History: Other (EGD with biopsy and skin cancer with biopsy) Family History: None Smoke: No ALCOHOL: none Drugs: None Lives: with Family Domestic Violence: Neg Review of Systems Constitutional: Yes: Weakness Musculoskeletal: neck pain, arm pain, back pain Allergies: Coded Allergies: No Known Drug Allergy (Verified Allergy, Unknown, 03/05/24) Exam Vital Signs Vital Signs Date Time Temp Pulse Resp B/P (MAP) Pulse Ox O2 Delivery O2 Flow Rate FiO2 09/03/24 11:54 87 17 118/67 (84) 99 09/03/24 09:54 98.1 98.1 General Appearance: Alert, Oriented X3, Cooperative, No acute distress HEENT: Atraumatic, PERRLA, EOMI, Mucous membr. moist/pink Respiratory: Normal air movement Cardiovascular: Regular rate, Normal S1, Normal S2 Abdominal: Soft Extremities: No clubbing, No cyanosis, Normal pulses Skin: No significant lesion Neuro: Normal speech, Strength at 5/5 X4 ext, Normal tone, Sensation intact Psych/Mental Status: Mental status NL, Mood NL Labs/Xrays Labs Test 09/03/24 10:14 Range/Units White Blood Count 6.3 4.4-10.8 10^3/uL Red Blood Count 3.93 L 4.0-5.20 10^6/uL Hemoglobin 11.3 L 12.2-16.2 g/dL Hematocrit 33.0 L 36.0-46.0 % Mean Corpuscular Volume 83.9 80.0-100.0 fL Mean Corpuscular Hemoglobin 28.8 28.0-32.0 pg Mean Corpuscular Hemoglobin Concent 34.4 32.0-36.0 g/dL Red Cell Distribution Width 13.5 11.8-14.3 % Platelet Count 180 140-450 10^3/uL Mean Platelet Volume 8.0 6.9-10.8 fL Neutrophils (%) (Auto) 78.2 37.0-80.0 % Lymphocytes (%) (Auto) 14.9 10.0-50.0 % Monocytes (%) (Auto) 6.1 0.0-12.0 % Eosinophils (%) (Auto) 0.5 0.0-7.0 % Basophils (%) (Auto) 0.3 0.0-2.0 % Neutrophils # (Auto) 4.9 1.6-8.6 10 ^3/uL Lymphocytes # (Auto) 0.9 0.4-5.4 10 ^3/uL Monocytes # (Auto) 0.4 0-1.3 10 ^3/uL Eosinophils # (Auto) 0 0-0.8 10 ^3/uL Basophils # (Auto) 0 0-0.2 10 ^3/uL Nucleated Red Blood Cells 0.0 % Sodium Level 132 L 136-145 mmol/L Potassium Level 4.0 3.5-5.1 mmol/L Chloride Level 97 L 98-107 mmol/L Carbon Dioxide Level 27 20-31 mmol/L Anion Gap 8 5-15 Blood Urea Nitrogen 14 9-23 mg/dL Creatinine 0.73 0.550-1.02 mg/dL Glomerular Filtration Rate Calc 92 >90 mL/min BUN/Creatinine Ratio 19.2 10.0-20.0 Serum Glucose 362 H 74-106 mg/dL Lactic Acid Level 1.1 0.4-2.0 mmol/L Calcium Level 9.9 8.7-10.4 mg/dL Total Bilirubin 0.8 0.2-1.0 mg/dL Aspartate Amino Transferase (AST) 20 13-40 U/L Alanine Aminotransferase (ALT) 19 7-40 U/L Alkaline Phosphatase 91 46-116 U/L Total Protein 7.0 5.7-8.2 g/dL Albumin 4.2 3.2-4.8 g/dL CT HEAD WITHOUT CONTRAST INDICATION: neck pain and gen weakness EXAM DATE: 09/03/2024 12:52 PM COMPARISON: CT HEAD WITHOUT CONTRAST on DOS: 11/27/23 RADIATION DOSE: CTDIvol: 52.14 mGy, DLP: 923.38 mGy*cm PROCEDURE: CT scans of the head were obtained from the vertex to the skull base. Sagittal and coronal reconstructions were provided. All CT scans at this medical facility are performed using dose modulation techniques as appropriate to a performed exam including the following: Automated exposure control was utilized; adjustment of the MA and/or KV according to patient size; and use of iterative reconstruction technique. FINDINGS: Bilateral basal ganglia mineralization, similar to prior. There is sulcal and ventricular prominence. The brain other shows normal morphology and rehman-white matter differentiation, without intracranial hemorrhage, extra-axial fluid collection, mass effect or acute large vessel infarct. The ventricles are normal in size. The basal cisterns are patent. The skull and visible facial bones are intact. The paranasal sinuses, mastoid air cells and middle ear cavities are well-aerated. The soft tissues of the scalp are unremarkable. IMPRESSION: Bilateral basal ganglia mineralization, similar to prior. No acute intracranial abnormality. EXAM: XY CHEST XRAY 1 VIEW Indication: Pain; r/o pna Technique: Single frontal view of the chest was obtained Comparison: XY CHEST PORTABLE on DOS: 12/23/23, XY CHEST PORTABLE on DOS: 11/19/23 FINDINGS: Lines and Tubes: None Lungs: No focal consolidation. Pleura: No effusion. No pneumothorax. Cardiomediastinal contours: Unremarkable Bones: No acute osseous abnormality. IMPRESSION: No acute cardiopulmonary disease. Assessment/Plan Assessment/Plan Assessment Generalized weakness Left neck pain radiating to the back and the arm likely referred Acute cystitis ?Constipation Hyponatremia Anemia Diabetes uncontrolled Obesity History of neuropathy History of EGD with biopsy History of skin cancer on neck right side biopsy Plan Admit to [facility] IV antibiotics-vancomycin + cefepime Antiemetics Pain management KUB ordered UA UDS Urine culture NS 2 L given ED Blood cultures Lactic level EKG Hemoglobin A1c ISS and Accu-Cheks Chest x-ray noted CT head noted Diet Bowel regimen Home medications reconciled DVT prophylaxis-Lovenox PUD prophylaxis-PPIs Discussed plan of care with patient, patient's spouse, and nurse Counseled patient on lifestyle modifications, diet, and exercise Plan discussed with: Patient, Spouse My Orders Orders - ORLANDO GATES Procedure Category Date Status Time Chest Xray 1 View XY 09/03/24 Resulted 12:45 Drug Screen LAB 09/03/24 Logged 12:45 Urine Bacterial PITO 09/03/24 Logged Culture 12:[address] 09/03/24 Resulted 12:45 Admit ADMIT 09/03/24 Verified 13:36 Allergies JACKSON 09/03/24 Verified 13:36 Code Status CODE 09/03/24 Verified 13:36 Hydrocodone-Acet PHA 09/03/24 Verified 5/325mg Tab (Advance 13:45 Ondansetron Hcl PHA 09/03/24 Verified (Zofran) 13:45 Enoxaparin Sodium PHA 09/04/24 Verified (Lovenox) 10:00 Complete Blood Count LAB 09/04/24 Verified 04:00 Comprehensive LAB 09/04/24 Verified Metabolic Panel 04:00 Cardiac DIET 09/03/24 Verified Diet-2gna,Lofat,Lochol Dinner Acetaminophen Tablet PHA 09/03/24 Verified (Tylenol Tablet) 13:45 Glucose Blood PHA 09/03/24 Verified (Accu-Chek Comfort 17:00 Mild Sliding Scale PHA 09/03/24 Verified 17:00 Dextrose 50% Syringe PHA 09/03/24 Verified 13:45 Vancomycin Per PHA 09/03/24 Verified Pharmacy 13:45 Cefepime 1 Gm PHA 09/03/24 Verified 14:00 Date of Service: September 03, 2024 Billing Provider: ORLANDO GATES Common Visit Codes: [id number] INP/OBS CARE (HIGH) ORLANDO GATES September 03, 2024 13:56
--- NOTE | 2024-09-03 14:37 | DVH ---
Exam: XY KUB ABDOMEN SINGLE VIEW Indication: constipation Comparison: None Technique: 1 radiographic views of the abdomen. Findings: Moderate colonic stool. Nonobstructive bowel gas pattern noted. There is no definite evidence for pneumoperitoneum. No abnormal calcifications noted. Impression: Nonobstructive bowel gas pattern noted.
[2024-09-03] MEDS: CEFEPIME 2GM/50ML NS 50 ML IV ONE (14:52)
[2024-09-03] MEDS: POLYETHYLENE GLYCOL 17 GM PWDR PO SCH (14:55)
[2024-09-03] MEDS: SODIUM CHLORIDE 0.9% 2,000 ML IV ONE (14:57)
[2024-09-03] MEDS: CEFEPIME 1GM/ 50ML 50 ML IV SCH (14:58)
[2024-09-03] MEDS: ACCU-CHEK COMFORT CURVE STRIP VI SCH ×2 (16:40→16:46)
[2024-09-03] MEDS: InsuLIN REG 1unit/0.01ml Soln (100units/ml) SC SCH ×2 (16:42→16:46)
[2024-09-03] MEDS: VANCOMYCIN 1GM/200ML PM 200 ML IV ONE (18:03)
--- NOTE | 2024-09-03 19:09 | ECG ---
[facility] Test Date: 2024-09-03 Test Time: 09:30:56 Pat Name: JUAN HAWKINS Department: ED Room: 0294 Gender: F City Editor: NALLELY : 1960 Requested By: MARLINE GONZALEZ Order Number: [id number] Reading MD: Gurmeet Laboy Measurements Intervals [place] Rate: 85 P: 38 CO: 98 QRS: 60 QRSD: 82 T: 42 QT: 359 QTc: 427 Interpretive Statements Sinus rhythm Short CO interval Electronically Signed On 09-09-2024 11:14:17 PDT by Gurmeet Laboy Please click the below link to view image of tracing.
[2024-09-03 22:58] VITALS: BP 126/66; PULSE 82; RESP 16; TEMP 98.3; O2SAT 98; O2SAT 99
[2024-09-03] MEDS: SENNA 8.6 MG TAB PO SCH (23:14)
[2024-09-03] MEDS: GABAPENTIN 100 MG CAP PO SCH (23:45)
[2024-09-04] VITALS (7 sets, daily range): BP systolic 97–139; BP diastolic 59–68; PULSE 80–89; RESP 15–18; TEMP 98.1–100.9; O2SAT 96–98
[2024-09-04 00:39] LABS: Amphetamine Screen, Urine Neg (NEGATIVE); Barbiturate Scree,Urine Neg (NEGATIVE); Benzodiazephine Screen, Urine Neg (NEGATIVE); Cannabinoid Screen, Urine Neg (NEGATIVE); Cocaine Screen, Urine Neg (NEGATIVE); Opiate Scree,Urine Neg (NEGATIVE); Phencyclidine Screen, Urine Neg (NEGATIVE)
[2024-09-04 00:51] LABS: Urine Bacteria FEW /hpf (None Seen); Urine Blood Negative /uL (Negative); Urine Clarity Clear (Clear); Urine Color Yellow (Yellow); Urine Protein, UAD Negative (Negative); Urine Specific Gravity 1.011 (1.001-1.035); Urine Squamous Epithelial Cell FEW /hpf (<5); Urine Urobilinogen Normal (Negative); Urine WBC 27 /HPF (0-5); Urine WBC Clumps PRESENT /hpf (None Seen)
[2024-09-04 06:28] LABS: Alanine Aminotransferase 12 U/L (7-40); Alkaline Phosphatase 78 U/L (46-116); Anion Gap 10 (5-15); BUN/Creatinine Ratio 14.3 (10.0-20.0); Blood Urea Nitrogen 10 mg/dL (9-23); Calcium 8.9 mg/dL (8.7-10.4); Carbon Dioxide 24 mmol/L (20-31); Chloride 103 mmol/L (98-107); Potassium 3.7 mmol/L (3.5-5.1); Sodium 137 mmol/L (136-145); Total Protein 6.3 g/dL (5.7-8.2)
[2024-09-04 06:29] LABS: Albumin 3.8 g/dL (3.2-4.8); Aspartate Aminotransferase 17 U/L (13-40); Bilirubin, Total 0.7 mg/dL (0.2-1.0)
[2024-09-04 06:35] LABS: Glucose 231 mg/dL (74-106)
[2024-09-04 06:58] LABS: Basophils # (auto) 0 10 ^3/uL (0-0.2); Basophils % (auto) 0.5 % (0.0-2.0); Eosinophils # (auto) 0 10 ^3/uL (0-0.8); Eosinophils % (auto) 0.8 % (0.0-7.0); Hematocrit 33.3 % (36.0-46.0); Hemoglobin 11.5 g/dL (12.2-16.2); Lymphocytes # (auto) 1.2 10 ^3/uL (0.4-5.4); Lymphocytes % (auto) 21.8 % (10.0-50.0); Mean Corpuscular Hemoglobin 29.1 pg (28.0-32.0); Mean Corpuscular Hgb Conc. 34.6 g/dL (32.0-36.0); Mean Corpuscular Volume 84.2 fL (80.0-100.0); Monocytes # (auto) 0.5 10 ^3/uL (0-1.3); Monocytes % (auto) 8.4 % (0.0-12.0); Neutrophils # (auto) 3.8 10 ^3/uL (1.6-8.6); Neutrophils % (auto) 68.5 % (37.0-80.0); Nucleated Red Blood Cells % 0.1 %; Platelet Count (auto) 190 10^3/uL (140-450); Red Blood Cells 3.95 10^6/uL (4.0-5.20); Red Cell Distribution Width 13.4 % (11.8-14.3); White Blood Cell 5.5 10^3/uL (4.4-10.8)
[2024-09-04] MEDS: VANCOMYCIN 1GM/200ML PM 200 ML IV SCH (09:49)
[2024-09-04] MEDS: PANTOPRAZOLE 40 MG/10 ML VIAL INJ IV SCH (09:49)
[2024-09-04] MEDS: ENOXAPARIN SOD 40 MG/0.4 ML SYRINGE SC SCH (09:50)
[2024-09-04] MEDS ORDERED: GABA-339 PO (10:38)
--- NOTE | 2024-09-04 15:51 | DVHPNRES ---
Progress Note Date Seen: September 04, 2024 Resident Creating Document: NIXON KNOWLES RESIDENT Medical Necessity Reason Pt with a Central, PICC or Fol: No Subjective Review of Systems patient seen and examined at bed side no new complains pending urine cultures physical therapy evaluation Objective vital signs Vital Sign Date Time Temp Pulse Resp B/P (MAP) Pulse Ox O2 Delivery O2 Flow Rate FiO2 09/04/24 13:00 99.2 80 18 112/63 (79) 98 99.2 09/04/24 08:00 Room Air* 0 21 Total Intake and Output 09/03/24 09/03/24 09/04/24 15:00 23:00 07:00 Intake Total 250 ml 0 ml Output Total 700 ml Balance 250 ml -700 ml medications Current Medications Medications Dose Ordered Sig/Aryan Route Start Time Stop Time Status Last Admin Dose Admin Acetaminophen/ Hydrocodone Bitart 1 tab Q4HP PRN PO 09/03/24 13:45 Ondansetron HCl 4 mg Q4HP PRN IV 09/03/24 13:45 Enoxaparin Sodium 40 mg DAILY SC 09/04/24 10:00 09/04/24 09:50 40 MG Acetaminophen 650 mg Q6HP PRN PO 09/03/24 13:45 Diagnostic Test (Pha) 1 strip ACHS 09/03/24 17:00 09/04/24 11:50 1 STRIP Insulin Human Regular ACHS SC 09/03/24 17:00 09/04/24 11:52 6 UNITS Dextrose 50 ml UD PRN IV 09/03/24 13:45 Cancel Vancomycin HCl 0 ml @ 0 mls/hr UD IV 09/03/24 13:45 Cefepime HCl 50 ml @ 12.5 mls/hr Q8HR IV 09/03/24 14:00 09/04/24 14:45 12.5 MLS/HR Gabapentin 100 mg BID PO 09/03/24 22:00 09/03/24 23:45 100 MG Dextrose 50 ml UD PRN IV 09/03/24 14:00 Pantoprazole Sodium 40 mg DAILY IV 09/04/24 10:00 09/04/24 09:49 40 MG Polyethylene Glycol 17 gm DAILY PO 09/03/24 14:00 Sennosides 8.6 mg HS PO 09/03/24 22:00 Vancomycin HCl 200 ml @ 200 mls/hr Q16H IV 09/04/24 10:00 09/04/24 09:49 200 MLS/HR Examination General Appearance: Cooperative. Well developed. Well nourished. NAD Head Exam: Normal inspection Neck Exam: Normal inspection. Non-tender. Normal alignment Pulmonary/Respiratory: Chest non-tender. Clear bilateral breath sounds Cardiovascular/Chest: Regular rate and rhythm. No murmurs. No JVD. Peripheral Pulses: 2+ Radial (R). 2+ Radial (L). 2+ Pedal (R). 2+ Pedal (L) Abdominal Exam: Normal bowel sounds. Soft. Nontender. No hepatospenomegaly. No masses Ankle Exam: Negative ankle edema Lower extremities: Negative lower extremity edema Neuro/Mental Status: A&O x4. Coherent, unsteady gait Thoughts/Psych: Normal thought pattern. Appropriate mood and affect. Good judgement and insight Appearance: In no acute distress Skin Exam: Normal inspection. Normal color. Warm. Dry laboratory and microbiology Laboratory Tests 09/04/24 04:50 Test 09/04/24 04:50 Range/Units Serum Glucose 231 H 74-106 mg/dL Microbiology Date/Time Source Procedure Growth Status 09/03/24 10:14 Blood Blood Culture - Preliminary NO GROWTH AFTER 24 HOURS OF INCUBATION. Resulted Problem List/Assessment/Plan Problem List/Assessment/Plan Acute cystitis Uncontrolled diabetes mellitus type 2 with A1c 11.5 Severe protein malnutrition Generalized weakness likely due to cystitis Peripheral neuropathy Chronic neck and back pain Constipation Plan/recommendation -continue IV antibiotic with cefepime. Pending urine culture. No growth from blood culture. -HGB A1c 11.5 with uncontrolled hyperglycemia: Insulin Lantus 15 units subQ once daily, insulin sliding scale -nutrition consultation: Advised on high-protein intake, low-carbohydrate index diet -encouraged for physical activity, able to ambulate with support -constipation: MiraLax and senna -DVT prophylaxis with enoxaparin Goals of care discussed greater than 24 minutes, full code status. Plan discussed with Dr Lazaro Plan discussed with: Patient, Other My Orders My Orders Orders - NIXON KNOWLES RESIDENT Procedure Category Date Status Time Pt Request For Service PT 09/04/24 Logged 15:40 Gabapentin Capsule PHA 09/04/24 Transmitted (Neurontin Capsule) 22:00 Date of Service: September 04, 2024 Billing Provider: SELENA LAZARO MD Common Visit Codes: [id number] INP/OBS CARE(HIGH) NIXON KNOWLES RESIDENT September 04, 2024 15:51 SELENA LAZARO MD September 04, 2024 22:36
[2024-09-04] MEDS: ACETAMINOPHEN 325 MG TAB PO PRN (17:28)
[2024-09-04] MEDS: GABAPENTIN 300 MG CAP PO SCH (21:03)
[2024-09-04] MEDS: INSULIN LANTUS (GLARGINE) 1 /0.01ml (100units/ml) SC SCH (21:58)
[2024-09-04] MEDS ORDERED: GABAPENTIN 100 MG CAP PO SCH (22:00)
[2024-09-05 01:00] VITALS: BP 116/66; PULSE 89; RESP 15; TEMP 98.2; O2SAT 98
[2024-09-05 05:00] VITALS: BP 116/71; PULSE 89; RESP 16; TEMP 99; O2SAT 98
[2024-09-05 08:00] VITALS: PULSE 92; RESP 16; O2SAT 95
[2024-09-05 08:58] VITALS: BP 105/67; PULSE 92; RESP 16; TEMP 99.4; O2SAT 95
[2024-09-05 09:16] LABS: Basophils # (auto) 0 10 ^3/uL (0-0.2); Basophils % (auto) 0.5 % (0.0-2.0); Eosinophils # (auto) 0.1 10 ^3/uL (0-0.8); Hematocrit 32.2 % (36.0-46.0); Hemoglobin 11.2 g/dL (12.2-16.2); Lymphocytes # (auto) 1.2 10 ^3/uL (0.4-5.4); Mean Corpuscular Hemoglobin 29.2 pg (28.0-32.0); Mean Corpuscular Hgb Conc. 34.8 g/dL (32.0-36.0); Mean Corpuscular Volume 83.8 fL (80.0-100.0); Monocytes # (auto) 0.5 10 ^3/uL (0-1.3); Neutrophils # (auto) 3.6 10 ^3/uL (1.6-8.6); Neutrophils % (auto) 66.5 % (37.0-80.0); Nucleated Red Blood Cells % 0.1 %; Platelet Count (auto) 208 10^3/uL (140-450); Red Blood Cells 3.84 10^6/uL (4.0-5.20); Red Cell Distribution Width 13.8 % (11.8-14.3); White Blood Cell 5.4 10^3/uL (4.4-10.8)
[2024-09-05 09:31] LABS: Chloride 106 mmol/L (98-107); Potassium 3.7 mmol/L (3.5-5.1); Sodium 141 mmol/L (136-145)
[2024-09-05 09:32] LABS: Anion Gap 11 (5-15); Calcium 9.3 mg/dL (8.7-10.4); Carbon Dioxide 24 mmol/L (20-31)
[2024-09-05 09:37] LABS: BUN/Creatinine Ratio 13.7 (10.0-20.0); Blood Urea Nitrogen 10 mg/dL (9-23)
[2024-09-05 09:51] LABS: Glucose 215 mg/dL (74-106)
[2024-09-05] MEDS ORDERED: NITR-52 PO (10:14)
[2024-09-05 11:13] VITALS: BP 105/67; PULSE 92; RESP 16; TEMP 99.4; O2SAT 95
--- NOTE | 2024-09-05 12:13 | DVHDSRES ---
Discharge Summary Date of Admission Resident Creating Document: NIXON KNOWLES RESIDENT September 03, 2024 at 13:36 Date of Discharge: September 05, 2024 Admitting Diagnosis UTI Labs/Diagnostic Data: Laboratory Results Test 09/05/24 06:15 09/05/24 05:44 09/04/24 04:50 09/03/24 23:59 POC Glucose 204 mg/dl (70-106) White Blood Count 5.4 10^3/uL (4.4-10.8) Red Blood Count 3.84 10^6/uL (4.0-5.20) Hemoglobin 11.2 g/dL (12.2-16.2) Hematocrit 32.2 % (36.0-46.0) Mean Corpuscular Volume 83.8 fL (80.0-100.0) Mean Corpuscular Hemoglobin 29.2 pg (28.0-32.0) Mean Corpuscular Hemoglobin Concent 34.8 g/dL (32.0-36.0) Red Cell Distribution Width 13.8 % (11.8-14.3) Platelet Count 208 10^3/uL (140-450) Mean Platelet Volume 8.4 fL (6.9-10.8) Neutrophils (%) (Auto) 66.5 % (37.0-80.0) Lymphocytes (%) (Auto) 22.0 % (10.0-50.0) Monocytes (%) (Auto) 10.0 % (0.0-12.0) Eosinophils (%) (Auto) 1.0 % (0.0-7.0) Basophils (%) (Auto) 0.5 % (0.0-2.0) Neutrophils # (Auto) 3.6 10 ^3/uL (1.6-8.6) Lymphocytes # (Auto) 1.2 10 ^3/uL (0.4-5.4) Monocytes # (Auto) 0.5 10 ^3/uL (0-1.3) Eosinophils # (Auto) 0.1 10 ^3/uL (0-0.8) Basophils # (Auto) 0 10 ^3/uL (0-0.2) Nucleated Red Blood Cells 0.1 % Sodium Level 141 mmol/L (136-145) Potassium Level 3.7 mmol/L (3.5-5.1) Chloride Level 106 mmol/L (98-107) Carbon Dioxide Level 24 mmol/L (20-31) Anion Gap 11 (5-15) Blood Urea Nitrogen 10 mg/dL (9-23) Creatinine 0.73 mg/dL (0.550-1.02) Glomerular Filtration Rate Calc 92 mL/min (>90) BUN/Creatinine Ratio 13.7 (10.0-20.0) Serum Glucose 215 mg/dL (74-106) Calcium Level 9.3 mg/dL (8.7-10.4) Total Bilirubin 0.7 mg/dL (0.2-1.0) Aspartate Amino Transferase (AST) 17 U/L (13-40) Alanine Aminotransferase (ALT) 12 U/L (7-40) Alkaline Phosphatase 78 U/L (46-116) Total Protein 6.3 g/dL (5.7-8.2) Albumin 3.8 g/dL (3.2-4.8) Urine Color Yellow (Yellow) Urine Clarity Clear (Clear) Urine pH 6.0 (5.0-9.0) Urine Specific [place] 1.011 (1.001-1.035) Urine Protein Negative (Negative) Urine Ketones 2+ (Negative) Urine Blood Negative /uL (Negative) Urine Nitrite Negative (Negative) Urine Bilirubin Negative (Negative) Urine Urobilinogen Normal mg/dL (Negative) Urine Leukocyte Esterase 1+ /uL (Negative) Urine RBC None seen /hpf (0 - 4) Urine WBC Clumps Present /hpf (None Seen) Urine Microscopic WBC 27 /HPF (0-5) Urine Squamous Epithelial Cells Few /hpf (<5) Urine Bacteria Few /hpf (None Seen) Urine Glucose 2+ mg/dL (Normal) Urine Opiates Screen Neg (NEGATIVE) Urine Fentanyl Screen Neg (NEGATIVE) Urine Barbiturates Screen Neg (NEGATIVE) Urine Phencyclidine Screen Neg (NEGATIVE) Urine Amphetamines Screen Neg (NEGATIVE) Urine Benzodiazepines Screen Neg (NEGATIVE) Urine Cocaine Screen Neg (NEGATIVE) Urine Cannabinoids Screen Neg (NEGATIVE) Test 09/03/24 10:14 Hemoglobin A1c 11.5 % A1C (<5.7) Lactic Acid Level 1.1 mmol/L (0.4-2.0) Other Laboratory Tests 09/05/24 05:44 Brief Hx & Hospital Course: Patient is 64-year-old female with past medical history of diabetes mellitus type 2 on insulin, diabetic neuropathy taking gabapentin, UTIs who presented to hospital with a chief complaint generalized weakness, more confused, associated with chronic neck and back pain. Patient was sent to the hospital by primary care physician given patient received UTI however symptoms did not resolve, patient continued to have mild confusion sliding scale. During hospitalization patient was started on broad-spectrum antibiotics cefepime and vancomycin, underwent investigation including blood culture, urine culture which did not grow any pathogens. Patient was asymptomatic, no fever, no chills, abdominal pain, dysuria, any other symptoms, hemodynamically stable therefore patient will be discharged home with oral antibiotic nitrofurantoin 100 mg p.o. b.i.d. for four days and advised to follow with primary care physician Dr. Martínez . ED precaution also provided, advised to come to the hospital if symptom recurs or worsens. Condition at Discharge: Stable Final Diagnosis/Problems List Acute cystitis Uncontrolled diabetes mellitus type 2 with A1c 11.5 Severe protein malnutrition Generalized weakness likely due to cystitis Peripheral neuropathy Chronic neck and back pain Constipation Discharge Disposition: Home Discharge Instruct/Medications Diet: Consistent carbohydrate Activity: No Restrictions, As Tolerated Follow Up/Referral: -Follow up with PCP dr martínez in clinic Medications: See prescription Discharge Statement: "Patient was advised to return to the ER or call 911 if any headaches, dizziness, shortness of breath, chest pain, abdominal pain, bleeding, fevers, or worsening of medical condition. Patient was counseled about treatment plan, medications, possible side effects, patientverbalized understanding. All questions were answered to the best of my ability. This discharge took greater then 30 minutes in planning, reviewing documentation, counseling the patient, and discussing with other team members." ASSESSMENT ASSESSMENT Assessment acute cystitis Date of Service: September 05, 2024 Billing Provider: SELENA CLINE MD Common Visit Codes: 58497-OUL/OBS DISCH DAY >30min NIXON KNOWLES RESIDENT September 05, 2024 12:13 SELENA CLINE MD September 05, 2024 22:18
== END 2024-09-05 11:44 | disposition home or self-care (01) | DRG 463 ==
LOC: ER 09:24 → EDBD 09:24 → OVERFLOW 13:36 → WEST WING 22:55
PROVIDERS: ADMIT Internal Medicine; ATTEND Internal Medicine
DX: N30.00 Acute cystitis without hematuria (principal); E43 Unspecified severe protein-calorie malnutrition; E11.42 Type 2 diabetes mellitus with diabetic polyneuropathy; E11.65 Type 2 diabetes mellitus with hyperglycemia; D64.9 Anemia, unspecified; E66.9 Obesity, unspecified; K59.00 Constipation, unspecified; Z68.20 Body mass index [BMI] 20.0-20.9, adult; M54.2 Cervicalgia; Z85.828 Personal history of other malignant neoplasm of skin
CPT/HCPCS: 36415; 70450; 71045; 74018; 80048; 80053; 80307; 81001; 82565; 82962; 83036; 83605; 85025; 87040; 87086; 93005; 97163; 99291; G0378; J1815; J2470

== ENCOUNTER 2025-01-06 07:32 | Outpatient (CLI) | payer MEDICAID ==
[~2025-01-06 07:32] MED LIST changes: -BLOO1KIT60 XX; -CEPH500C PO; -GABA-1308 PO; +GABA-339 PO; +NITR-52 PO; -PHEN-1045 PO; -ZOFR4T PO
[2025-01-06 08:33] LABS: Hematocrit 40.7 % (36.0-46.0); Hemoglobin 13.8 g/dL (12.2-16.2); Mean Corpuscular Hemoglobin 27.9 pg (28.0-32.0); Mean Corpuscular Volume 82.7 fL (80.0-100.0); Nucleated Red Blood Cells % 0.0 %
[2025-01-06 09:06] LABS: Alanine Aminotransferase 11 U/L (7-40); Albumin 4.2 g/dL (3.2-4.8); Anion Gap 9 (5-15); BUN/Creatinine Ratio 20.7 (10.0-20.0); Bilirubin, Total 0.8 mg/dL (0.2-1.0); Blood Urea Nitrogen 17 mg/dL (9-23); Calcium 9.2 mg/dL (8.7-10.4); Carbon Dioxide 25 mmol/L (20-31); Chloride 106 mmol/L (98-107); HDL Cholesterol 56 mg/dL (40-59); Potassium 4.1 mmol/L (3.5-5.1); Sodium 140 mmol/L (136-145); Total Protein 7.3 g/dL (5.7-8.2); Triglycerides 81 mg/dL (< 150)
[2025-01-06 09:07] LABS: Urine Protein, UAD Normal (Negative)
[2025-01-06 09:07] LABS: Alkaline Phosphatase 118 U/L (46-116); Cholesterol 208 mg/dL (< 200); Glucose 166 mg/dL (74-106)
[2025-01-06 09:24] LABS: Microalb/Creat Ratio, Urine 14.0
== END 2025-01-06 17:00 | disposition home or self-care (01) ==
LOC: LAB 07:32
PROVIDERS: ATTEND Internal Medicine
DX: E11.65 Type 2 diabetes mellitus with hyperglycemia (principal); E11.69 Type 2 diabetes mellitus with other specified complication; E78.5 Hyperlipidemia, unspecified; D72.819 Decreased white blood cell count, unspecified; R79.89 Other specified abnormal findings of blood chemistry
CPT/HCPCS: 36415; 80053; 80061; 81003; 82043; 82570; 83036; 84439; 84443; 85025

== ENCOUNTER → 2025-04-16 | Outpatient (CLI) | payer MEDICAID | END | disposition home or self-care (01) | LOC: LAB 07:36 | PROVIDERS: ATTEND Internal Medicine | DX: E55.9 Vitamin D deficiency, unspecified (principal); M81.0 Age-related osteoporosis without current pathological fracture; G61.81 Chronic inflammatory demyelinating polyneuritis; G62.2 Polyneuropathy due to other toxic agents | CPT/HCPCS: 82306; 82746; 84155; 84165 ==